=== PATIENT | female | born 1940 | race Caucasian/White ===

== ENCOUNTER → 2016-07-04 | Outpatient (CLI) | payer MEDICARE, MEDICAID ==
[~2016-07-04] MED LIST: DENOSUMAB 60 MG/ML 1 ML SYRINGE SQ NR
[2016-07-04 11:17] VITALS: BP 144/75; PULSE 101; RESP 16; TEMP 98
== END ==
LOC: PROCWHC3 10:48
PROVIDERS: ATTEND Family Medicine
DX: M81.0 Age-related osteoporosis without current pathological fracture (principal)
CPT/HCPCS: 96372; J0897

== ENCOUNTER → 2017-07-31 | Outpatient (CLI) | payer MEDICARE, MEDICAID ==
[~2017-07-31] MED LIST changes: -DENOSUMAB 60 MG/ML 1 ML SYRINGE SQ NR; +DENOSUMAB 60 MG/ML 1 ML SYRINGE SQ ONE
[2017-07-31 09:45] VITALS: BP 132/92; PULSE 102; RESP 16; TEMP 97.1
== END ==
LOC: PROCWHC3 09:28
PROVIDERS: ATTEND Family Medicine
DX: M81.0 Age-related osteoporosis without current pathological fracture (principal)
CPT/HCPCS: 96372; J0897

== ENCOUNTER → 2017-08-01 | Outpatient (CLI) | payer MEDICARE, MEDICAID ==
--- NOTE | 2017-08-01 13:11 | CTL ---
EXAMINATION TYPE: CT Low Dose Lung DATE OF EXAM ORDERED: 08/01/2017 COMPARISON: None HISTORY: . Low Dose CT Lung Screening IV CONTRAST USED: None. SCREENING VISIT: First visit COMPARISON: None. TECHNIQUE: Low dose computed tomography scan was performed through the chest at 1 millimeter thick se ctions and reconstructed images in the coronal plane at [address] DIAGNOSTIC QUALITY: Satisfactory FINDINGS: LUNG NODULES: Right lung: Several sub-3 mm nodules are noted right upper lobe image 69, right middle lobe pleural-b ased image 162, lateral segment right middle lobe image 188 right lower lobe image 2:15. Left lung: Left upper lobe image 53.2 mm, groundglass density left upper lobe image 123 measuring 3.5 mm, pleural-based nodule left upper lobe lingula image 208 measuring 3.4 mm. LUNGS: COPD: Severity: Moderate Fibrosis: Severity: Mild scattered subpleural fibrosis noted. Lymph nodes: None Other findings: None RIGHT PLEURAL SPACE: Effusion: None Calcification: None Thickening: None Pneumothorax: None LEFT PLEURAL SPACE: Effusion: None Calcification: None Thickening: None Pneumothorax: None HEART: Heart Size: Mildly enlarged Coronary calcification: Mild Pericardial effusion: None OTHER FINDINGS: Upper abdomen: No significant abnormality Bony thorax: Degenerative changes Supraclavicular region: No significant abnormality Other: No significant abnormalityI IMPRESSION: 1. No multiple nonspecific pulmonary nodules all measuring less than 4 mm. 2. COPD FOLLOW UP CT CHEST RECOMMENDATION: Follow-up screening in one year CT LUNG RAD: Benign LUNG RAD CATEGORY 2
== END | disposition home or self-care (01) ==
LOC: RADCTMAIN 08:30
PROVIDERS: ATTEND Family Medicine
DX: J44.9 Chronic obstructive pulmonary disease, unspecified (principal); R91.8 Other nonspecific abnormal finding of lung field; F17.200 Nicotine dependence, unspecified, uncomplicated

== ENCOUNTER → 2017-09-20 | Outpatient (CLI) | payer MEDICARE, MEDICAID ==
--- NOTE | 2017-09-20 12:42 | ECHOS ---
STRESS ECHOCARDIOGRAM DATE OF SERVICE: 09/20/2017 INDICATIONS: Abnormal EKG. MEDICATIONS: Atorvastatin, lisinopril, Advair, aspirin, vitamin D, calcium. BASELINE HEART RATE: 80 BASELINE BLOOD PRESSURE: 135/50 MAXIMUM HEART RATE: 137 MAXIMUM BLOOD PRESSURE: 204/91 85% MPHR: 122 100% MPHR: 144 METS: 5.6 MAXIMUM STAGE REACHED: I TOTAL EXERCISE TIME: 4:19 INDICATION: Abnormal EKG, chest discomfort. CLINICAL INFORMATION: STRESS DATA: Pretesting physical examination showed a heart rate of 80, pressure is 135/50 mmHg. Baseline EKG showed sinus mechanism. The patient exercised on the treadmill according to Nolberto protocol for a total of 4 minutes and achieved 5.6 METS. Max heart rate was 137, which is about 95% of maximum predicted heart rate. Maximum blood pressure is 204/91 mmHg. Clinically, the patient did not have any symptoms of chest pain or discomfort. ECHOCARDIOGRAM IMAGES: On echocardiogram images from parasternal long axis view, parasternal short axis view, apical 4 chamber and apical 2 chamber view were obtained as a baseline images, at the peak of the heart rate as well as on recovery. The echocardiogram images showed good augmentation in the left ventricular systolic function without any evidence of wall motion abnormalities concerning for ischemia. CONCLUSION: 1. Average exercise tolerance. 2. Normal EKG in response to exercise. 3. Normal echocardiogram in response to exercise. 4. Essentially normal stress echocardiogram for the patient. MMODL / IJN: [id number] /
== END | disposition home or self-care (01) ==
LOC: RADNMMAIN 09:44
PROVIDERS: ATTEND Family Medicine
DX: R94.31 Abnormal electrocardiogram [ECG] [EKG] (principal)
CPT/HCPCS: 93351

== ENCOUNTER → 2018-02-14 | Outpatient (CLI) | payer MEDICARE ==
[2018-02-14 15:11] VITALS: BP 159/67; PULSE 88; RESP 16; TEMP 98.2
== END ==
LOC: PROCWHC3 14:24
PROVIDERS: ATTEND Family Medicine
DX: M81.0 Age-related osteoporosis without current pathological fracture (principal)
CPT/HCPCS: 96372; J0897

== ENCOUNTER → 2018-08-09 | Outpatient (CLI) | payer MEDICARE, MEDICAID ==
[2018-08-09 09:58] VITALS: BP 166/70; PULSE 109; RESP 16; TEMP 98.3
== END | disposition home or self-care (01) ==
LOC: PROCWHC3 09:40
PROVIDERS: ATTEND Family Medicine
DX: M81.0 Age-related osteoporosis without current pathological fracture (principal)
CPT/HCPCS: 96372; J0897

== ENCOUNTER 2019-01-02 09:54 | Observation (INO) | payer MEDICARE, MEDICAID ==
[2019-01-02] MEDS ORDERED: ONDANSETRON 4 MG/2 ML VIAL IVP STA (10:21)
[2019-01-02] MEDS ORDERED: SODIUM CHLORIDE 0.9% 500 ML 500 ML IV STA (10:21)
--- NOTE | 2019-01-02 10:31 | ED ---
General Adult HPI - General Chief complaint: Abdominal Pain Stated complaint: ABDOMINAL PAIN Time Seen by Provider: 01/02/19 10:11 Source: patient, RN notes reviewed, old records reviewed Mode of arrival: ambulatory Limitations: no limitations - History of Present Illness Initial comments: 78-year-old female patient past medical history significant for hypertension hyperlipidemia presents ED chief complaint of abdominal pain. Patient works that last week she had some lower quadrant abdominal pain that she believes is possibly secondary to constipation. Patient took some stool softeners and had regular bowel movements and that resolved. Patient reports that today she is presenting to the emergency department with epigastric abdominal pain. Reports this has been ongoing for 2 days. Reports nausea without emesis. Denies any chest pain or shortness of breath. Denies any other complaints. Denies any use of blood thinners. Systemic: Pt denies fatigue, fever/chills, rash. Pt denies weakness, night sweats, weight loss. Neuro: Pt denies headache, visual disturbances, syncope or pre-syncope. HEENT: Pt denies ocular discharge or irritation, otalgia, rhinorrhea, pharyngitis or notable lymphadenopathy. Cardiopulmonary: Pt denies chest pain, SOB, heart palpitations, dyspnea on exertion. Abdominal/GI: Pt denies v/d. : Pt denies dysuria, burning w/ urination, frequency/urgency. Denies new onset urinary or bowel incontinence. MSK: Pt denies myalgia, loss of strength or function in extremities. Neuro: Pt denies new onset weakness, paresthesias. - Related Data Home Medications Medication Instructions Recorded Confirmed Aspirin 81 mg PO DAILY 07/04/16 01/02/19 Atorvastatin [Lipitor] 10 mg PO HS 07/04/16 01/02/19 Lisinopril-Hctz 10-12.5 mg 1 tab PO BID 07/04/16 01/02/19 [Zestoretic 10-12.5] Cholecalciferol (Vitamin D3) 2,000 unit PO DAILY 07/31/17 01/02/19 [Vitamin D3] Fluticasone/Salmeterol [Advair 1 puff INHALATION HS 07/31/17 01/02/19 250-50 Diskus] Allergies Allergy/AdvReac Type Severity Reaction Status Date / Time No Known Allergies Allergy Verified 01/02/19 13:45 Review of Systems ROS Statement: Those systems with pertinent positive or pertinent negative responses have been documented in the HPI. ROS Other: All systems not noted in ROS Statement are negative. Past Medical History Past Medical History: Hyperlipidemia, Hypertension, Osteoarthritis (OA) Additional Past Medical History / Comment(s): OSTEOPOROSIS. History of Any Multi-Drug Resistant Organisms: None Reported Past Surgical History: Orthopedic Surgery Additional Past Surgical History / Comment(s): D&C. LEFT WRIST FRACTURE. Past Anesthesia/Blood Transfusion Reactions: No Reported Reaction Past Psychological History: No Psychological Hx Reported, Depression Smoking Status: Current every day smoker Past Alcohol Use History: None Reported Past Drug Use History: None Reported General Exam - General Exam Comments Initial Comments: Constitutional: NAD, AOX3, Pt has pleasant affect. HEENT: NC/AT, trachea midline, neck supple, no lymphadenopathy. Posterior pharynx non erythematous, without exudates. External ears appear normal, without discharge. Mucous membranes moist. Eyes PERRLA, EOM intact. There is no scleral icterus. No pallor noted. Cardiopulmonary: RRR, no murmurs, rubs or gallops, no JVD noted. Lungs CTAB in anterior and posterior kiran. No peripheral edema. Abdominal exam: Abdomen soft and non-distended. Abdomen mildly tender to palpation in epigastric region, no other areas of abdominal tenderness. No skin changes, no guarding or rigidity.. Bowel sounds active in LLQ. No hepatosplenomegaly. No ecchymosis Neuro: CN II-XII grossly intact. No nuchal rigidity. No raccon eyes, no martinez sign, no hemotympanum. No cervical spinal tenderness. MSK: No posterior calf tenderness bilaterally, homans sign negative bilaterally. Posterior tibialis and radial pulse +1 bilaterally. Capillary refill less than 2 seconds. Foot is warm. Sensation intact in upper and lower extremities. Full active ROM in upper and lower extremities, 5/5 stregnth. Limitations: no limitations Course Vital Signs 01/02/19 10:01 Temperature 97.7 F Pulse Rate 83 Respiratory 18 Rate Blood Pressure 132/88 O2 Sat by Pulse 97 Oximetry Medical Decision Making - Medical Decision Making 78-year-old female patient past medical history significant for hypertension hyperlipidemia presents ED chief complaint of abdominal pain. Patient works that last week she had some lower quadrant abdominal pain that she believes is possibly secondary to constipation. Patient took some stool softeners and had regular bowel movements and that resolved. Patient reports that today she is pr esenting to the emergency department with epigastric abdominal pain. Reports this has been ongoing for 2 days. Reports nausea without emesis. Denies any chest pain or shortness of breath. Denies any other complaints. Denies any use of blood thinners. Patient vital signs stable, afebrile. His exam displayed abdomen mild tenderness to palpation epigastric region. Laboratory investigations revealed a leukocytosis of 18.1. Fundi negative. Coagulation studies within normal limits. UA displayed +[address] abdomen and pelvis displayed fairly severe atherosclerotic changes of the aorta extending into the peripheral branch vessels. Significant stenosis suspected complete occlusion of the left leg arterial system with reconstitution of the groin level. Currently correlated with left lower peripheral arterial disease symptoms. No findings to suggest bowel ischemia, possible mid proximal colitis. Abnormal 4.2 cm left pelvic or ovarian lesion. An emergent pelvic ultrasound recommended. His case was discussed with attending physician Dr. Ng who formed a physical exam and discuss case with general surgeon Dr. Borges. He recommended high-density heparinization, admission to him with vascular surgical consultation. - Lab Data Result diagrams: 01/02/19 11:05 01/02/19 11:05 Lab Results 01/02/19 01/02/19 01/02/19 Range/Units 11:00 11:05 11:05 WBC 18.1 H (3.8-10.6) k/uL RBC 4.20 (3.80-5.40) m/uL Hgb 12.8 (11.4-16.0) gm/dL Hct 39.1 (34.0-46.0) % MCV 93.1 (80.0-100.0) fL MCH 30.5 (25.0-35.0) pg MCHC 32.7 (31.0-37.0) g/dL RDW 12.7 (11.5-15.5) % Plt Count 264 (150-450) k/uL Neutrophils % 87 % Lymphocytes % 7 % Monocytes % 4 % Eosinophils % 1 % Basophils % 0 % Neutrophils # 15.8 H (1.3-7.7) k/uL Lymphocytes # 1.3 (1.0-4.8) k/uL Monocytes # 0.7 (0-1.0) k/uL Eosinophils # 0.2 (0-0.7) k/uL Basophils # 0.0 (0-0.2) k/uL PT 10.0 (9.0-12.0) sec INR 0.9 (<1.2) APTT 22.7 (22.0-30.0) sec Sodium 138 (137-145) mmol/L Potassium 3.7 (3.5-5.1) mmol/L Chloride 104 (98-107) mmol/L Carbon Dioxide 25 (22-30) mmol/L Anion Gap 9 mmol/L BUN 25 H (7-17) mg/dL Creatinine 0.53 (0.52-1.04) mg/dL Est GFR (CKD-EPI)AfAm >90 (>60 ml/min/1.73 sqM) Est GFR (CKD-EPI)NonAf >90 (>60 ml/min/1.73 sqM) Glucose 117 H (74-99) mg/dL Plasma Lactic Acid Alexei (0.7-2.0) mmol/L Calcium 10.0 (8.4-10.2) mg/dL Total Bilirubin 0.6 (0.2-1.3) mg/dL AST 27 (14-36) U/L ALT 30 (9-52) U/L Alkaline Phosphatase 47 (38-126) U/L Troponin I (0.000-0.034) ng/mL Total Protein 6.5 (6.3-8.2) g/dL Albumin 4.0 (3.5-5.0) g/dL Lipase 85 (23-300) U/L Urine Color Urine Appearance (Clear) Urine pH (5.0-8.0) Ur Specific [place] (1.001-1.035) Urine Protein (Negative) Urine Glucose (UA) (Negative) Urine Ketones (Negative) Urine Blood (Negative) Urine Nitrite (Negative) Urine Bilirubin (Negative) Urine Urobilinogen (<2.0) mg/dL Ur Leukocyte Esterase (Negative) Urine RBC (0-5) /hpf Urine WBC (0-5) /hpf Ur Squamous Epith Cells (0-4) /hpf Hyaline Casts (0-2) /lpf Urine Mucus (None) /hpf 01/02/19 01/02/19 01/02/19 Range/Units 11:05 11:05 11:35 WBC (3.8-10.6) k/uL RBC (3.80-5.40) m/uL Hgb (11.4-16.0) gm/dL Hct (34.0-46.0) % MCV (80.0-100.0) fL MCH (25.0-35.0) pg MCHC (31.0-37.0) g/dL RDW (11.5-15.5) % Plt Count (150-450) k/uL Neutrophils % % Lymphocytes % % Monocytes % % Eosinophils % % Basophils % % Neutrophils # (1.3-7.7) k/uL Lymphocytes # (1.0-4.8) k/uL Monocytes # (0-1.0) k/uL Eosinophils # (0-0.7) k/uL Basophils # (0-0.2) k/uL PT (9.0-12.0) sec INR (<1.2) APTT (22.0-30.0) sec Sodium (137-145) mmol/L Potassium (3.5-5.1) mmol/L Chloride (98-107) mmol/L Carbon Dioxide (22-30) mmol/L Anion Gap mmol/L BUN (7-17) mg/dL Creatinine (0.52-1.04) mg/dL Est GFR (CKD-EPI)AfAm (>60 ml/min/1.73 sqM) Est GFR (CKD-EPI)NonAf (>60 ml/min/1.73 sqM) Glucose (74-99) mg/dL Plasma Lactic Acid Alexei 1.1 (0.7-2.0) mmol/L Calcium (8.4-10.2) mg/dL Total Bilirubin (0.2-1.3) mg/dL AST (14-36) U/L ALT (9-52) U/L Alkaline Phosphatase (38-126) U/L Troponin I <0.012 (0.000-0.034) ng/mL Total Protein (6.3-8.2) g/dL Albumin (3.5-5.0) g/dL Lipase (23-300) U/L Urine Color Yellow Urine Appearance Cloudy H (Clear) Urine pH 6.5 (5.0-8.0) Ur Specific [place] 1.019 (1.001-1.035) Urine Protein Negative (Negative) Urine Glucose (UA) Negative (Negative) Urine Ketones 1+ H (Negative) Urine Blood Negative (Negative) Urine Nitrite Negative (Negative) Urine Bilirubin Negative (Negative) Urine Urobilinogen <2.0 (<2.0) mg/dL Ur Leukocyte Esterase Negative (Negative) Urine RBC 1 (0-5) /hpf Urine WBC 2 (0-5) /hpf Ur Squamous Epith Cells <1 (0-4) /hpf Hyaline Casts 4 H (0-2) /lpf Urine Mucus Rare H (None) /hpf - EKG Data -: EKG Interpreted by Me (and Dr. Ng) EKG Comments: Ventricular rate 76, SC interval 172, QRS 104, QT/QTc 14/470. Normal sensation, possible left atrial enlargement, low voltage QRS, but on EKG. No concern for acute ischemia. Disposition Clinical Impression: Abdominal pain Disposition: ADMITTED IP TO THIS HOSP Condition: Serious Is patient prescribed a controlled substance at d/c from ED?: No Referrals: Marlon Ellis MD [Primary Care Provider] - 1-2 days
[2019-01-02 11:24] LABS: Basophils % (A) 0 %; Eosinophils # (A) 0.2 k/uL (0-0.7); Eosinophils % (A) 1 %; HCT 39.1 % (34.0-46.0); HGB 12.8 gm/dL (11.4-16.0); Lymphocytes # (A) 1.3 k/uL (1.0-4.8); Lymphocytes % (A) 7 %; MCH 30.5 pg (25.0-35.0); MCHC 32.7 g/dL (31.0-37.0); MCV 93.1 fL (80.0-100.0); Monocytes # (A) 0.7 k/uL (0-1.0); Monocytes % (A) 4 %; Neutrophils # (A) 15.8 k/uL (1.3-7.7); Neutrophils % (A) 87 %; Platelet Count 264 k/uL (150-450); RDW 12.7 % (11.5-15.5); WBC 18.1 k/uL (3.8-10.6)
[2019-01-02 11:42] LABS: ALT 30 U/L (9-52); AST 27 U/L (14-36); African American GFR (CKD) >90 (>60 ml/min/1.73 sqM); Alkaline Phosphatase 47 U/L (38-126); Anion Gap 9 mmol/L; Blood Urea Nitrogen 25 mg/dL (7-17); Carbon Dioxide 25 mmol/L (22-30); Chloride 104 mmol/L (98-107); Glucose 117 mg/dL (74-99); Non-African American GFR(CKD) >90 (>60 ml/min/1.73 sqM); Potassium 3.7 mmol/L (3.5-5.1); Sodium 138 mmol/L (137-145); Total Bilirubin 0.6 mg/dL (0.2-1.3); Total Protein 6.5 g/dL (6.3-8.2)
[2019-01-02 11:57] LABS: Appearance,Urine Cloudy (Clear); Bilirubin,Urine Negative (Negative); Blood,Urine Negative (Negative); Color,Urine Yellow; Glucose,Urine (UA) Negative (Negative); Hyaline Casts,Urine 4 /lpf (0-2); Ketones,Urine 1+ (Negative); Leukocyte Esterase,Urine Negative (Negative); Mucus,Urine Rare /hpf; Nitrite,Urine Negative (Negative); PH, Urine 6.5 (5.0-8.0); Protein,Urine Negative (Negative); RBC,Urine 1 /hpf (0-5); Specific Gravity,Urine 1.019 (1.001-1.035); Squamous Epithelial Cell,Urine <1 /hpf (0-4); Urobilinogen,Urine <2.0 mg/dL (<2.0); WBC,Urine 2 /hpf (0-5)
--- NOTE | 2019-01-02 13:02 | CT ---
EXAMINATION TYPE: CT abdomen pelvis w con DATE OF EXAM: 01/02/2019 HISTORY: upper abd pain CT DLP: 343mGycm Automated Exposure Control for Dose Reduction was Utilized. CONTRAST: CT scan of the abdomen and pelvis is performed without oral but with IV Contrast, patient injected wi th 75 mL of Isovue 300. COMPARISON: None. FINDINGS: LUNG BASES: No significant abnormality is appreciated. LIVER/GB: No significant abnormality is appreciated. PANCREAS: No significant abnormality is seen. SPLEEN: No significant abnormality is seen. ADRENALS: No significant abnormality is seen. KIDNEYS: No significant abnormality is seen. BOWEL: Evaluation bowel suboptimal due to lack of enteric contrast and patient having little intra-ab dominal fat. Stomach is poorly distended and thus suboptimally evaluated. No suspicious small or larg e bowel dilatation. Low-lying cecum in the right pelvis coronal image 37 anteriorly. Mild wall thicke yesi right colon through the proximal transverse colon including hepatic flexure. UTERUS/ADNEXA: Retroverted uterus with suspected small calcified fibroid sagittal image 54. Abnormal left pelvic presumed ovarian 4.2 x 2.5 cm oval low dense lesion. LYMPH NODES: No greater than 1cm abdominal or pelvic lymph nodes are appreciated. OSSEOUS STRUCTURES: Osseous structures are demineralized. Slight underlying scoliotic curvature. Fair ly advanced disc space narrowing with endplate sclerosis L2-L3 level. Grade 1 anterolisthesis L4 on L 5.. OTHER: Moderate to severe calcified plaque of the aorta extends into branch vessels. Significant sten osis probable areas of occlusion in the left iliac arterial system. Significant stenosis at celiac ar jesu origin sagittal image 64 and coronal image 43. IMPRESSION: 1. Fairly severe atherosclerotic change of aorta extending into peripheral branch vessels. There is s ignificant stenosis suspected complete occlusion of the left iliac arterial system with reconstitutio n at the groin level. Correlate clinically for left lower extremity peripheral arterial disease sympt oms. 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 No obvious pneumatosis or portal v enous air noted to suggest bowel ischemia. Possible mild proximal colitis. Correlate clinically. 2. Abnormal 4.2 cm left pelvic or ovarian lesion, nonemergent pelvic ultrasound advised to further ev aluate and characterize. Background calcified fibroid uterus.
[2019-01-02] MEDS ORDERED: HEPARIN SODIUM,PORCINE 10,000 UNIT/ML 1 ML VIAL IV ONE (14:49)
[2019-01-02] MEDS ORDERED: HEPARIN SODIUM,PORCINE 5,000 UNIT/ML 1 ML VIAL IV PRN (14:49)
[2019-01-02 15:06] LABS: INR 0.9 (<1.2); Partial Thromboplastin Time 22.7 sec (22.0-30.0)
[2019-01-02] MEDS ORDERED: MORPHINE SULFATE 4 MG/ML SYRINGE IV PRN (15:18)
[2019-01-02] MEDS ORDERED: NALOXONE 0.4 MG/ML 1 ML VIAL IV PRN (15:18)
[2019-01-02] MEDS: HEPARIN SOD,PORK IN 0.45% NACL 25,000 UNIT in 0.45% NACL 1 250ML.BAG IV SCH (15:47)
[2019-01-02] MEDS: SODIUM CHLORIDE 0.9% 1,000 ML IV SCH (15:52)
[2019-01-02 19:10] LABS: Basophils % (A) 0 %; Eosinophils # (A) 0.1 k/uL (0-0.7); Eosinophils % (A) 1 %; HGB 12.3 gm/dL (11.4-16.0); Lymphocytes # (A) 2.2 k/uL (1.0-4.8); Lymphocytes % (A) 12 %; MCH 31.5 pg (25.0-35.0); MCHC 34.1 g/dL (31.0-37.0); MCV 92.5 fL (80.0-100.0); Mean Platelet Volume 6.2; Monocytes # (A) 0.9 k/uL (0-1.0); Monocytes % (A) 5 %; Neutrophils % (A) 81 %; Platelet Count 261 k/uL (150-450); RDW 12.9 % (11.5-15.5); WBC 18.5 k/uL (3.8-10.6)
[2019-01-02] MEDS: PIPERACILLIN-TAZOBACTAM 3.375 GM in SODIUM CHLORIDE 0.9% 100 ML IVPB SCH (19:10)
[2019-01-03] MEDS: PIPERACILLIN-TAZOBACTAM 3.375 GM in SODIUM CHLORIDE 0.9% 100 ML IVPB SCH ×4 (01:01→23:08)
[2019-01-03] MEDS: SODIUM CHLORIDE 0.9% 1,000 ML IV SCH ×3 (05:13→20:16)
[2019-01-03 06:21] LABS: Basophils % (A) 0 %; Eosinophils # (A) 0.3 k/uL (0-0.7); Eosinophils % (A) 3 %; HCT 34.4 % (34.0-46.0); HGB 11.4 gm/dL (11.4-16.0); Lymphocytes # (A) 2.3 k/uL (1.0-4.8); Lymphocytes % (A) 19 %; MCH 31.1 pg (25.0-35.0); MCHC 33.1 g/dL (31.0-37.0); MCV 93.8 fL (80.0-100.0); Mean Platelet Volume 7.2; Monocytes # (A) 0.6 k/uL (0-1.0); Monocytes % (A) 5 %; Neutrophils # (A) 8.6 k/uL (1.3-7.7); Neutrophils % (A) 71 %; Platelet Count 236 k/uL (150-450); RBC 3.67 m/uL (3.80-5.40)
--- NOTE | 2019-01-03 09:56 | P.GSCN ---
History of Present Illness Consult date: 01/03/19 History of present illness: The patient is a 78 year old female with a past medical history of hypertension, hyperlipidemia and tobacco abuse who presents to the hospital with abdominal pain. She states that this pain is more in her upper stomach area and has been happening for the past day. It began in the mid afternoon, there was no change in diet or anything that provoked the pain or onset. She denies any nausea, vomiting, fevers, or chills. A few days prior she did also have lower abdominal pain which was thought to be due to constipation. She took stool softeners and was able to relieve this pain. This current pain does not feel anything like the pain a few days previous. Prior to all this she denies any issues with eating although she does note in the past few years she has had early satiety, she denies any pain with eating. She has been working on eating smaller meals and this seems to help. She has never had a colonoscopy. We are asked to see the patient for evaluation of her computed tomography scan and notable atherosclerotic disease of her aorta and iliac branches. The computed tomography scan was reviewed, she does have significant calcification at the origin of the celiac artery, the SMA appears widely patent, there is significant distal disease and possible occlusion of the iliac on the left. The patient states that as far as her legs are concerned she does have issues with ambulation. She is able to walk about 2 blocks prior to having significant cramping and pain in her upper thighs and down into her calves. She states this is fairly new, initially was thought to be arthritis but now she thinks something else may be the issue. She denies any wounds Review of Systems 14 point review of systems performed, pertinent positives and negatives per the HPI. Past Medical History Past Medical History: Hyperlipidemia, Hypertension, Osteoarthritis (OA) Additional Past Medical History / Comment(s): OSTEOPOROSIS. History of Any Multi-Drug Resistant Organisms: None Reported Past Surgical History: Orthopedic Surgery Additional Past Surgical History / Comment(s): D&C. LEFT WRIST FRACTURE. Past Anesthesia/Blood Transfusion Reactions: No Reported Reaction Past Psychological History: No Psychological Hx Reported, Depression Smoking Status: Current every day smoker Past Alcohol Use History: None Reported Past Drug Use History: None Reported - Past Family History Daughter(s) Family Medical History: Hyperlipidemia, Hypertension Medications and Allergies Home Medications Medication Instructions Recorded Confirmed Type Aspirin 81 mg PO DAILY 07/04/16 01/02/19 History Atorvastatin [Lipitor] 10 mg PO HS 07/04/16 01/02/19 History Lisinopril-Hctz 10-12.5 mg 1 tab PO BID 07/04/16 01/02/19 History [Zestoretic 10-12.5] Cholecalciferol (Vitamin D3) 2,000 unit PO DAILY 07/31/17 01/02/19 History [Vitamin D3] Fluticasone/Salmeterol [Advair 1 puff INHALATION HS 07/31/17 01/02/19 History 250-50 Diskus] Allergies Allergy/AdvReac Type Severity Reaction Status Date / Time No Known Allergies Allergy Verified 01/02/19 13:45 Surgical - Exam Vital Signs Temp Pulse Resp BP Pulse Ox 97.7 F 83 18 132/88 97 01/02/19 10:01 01/02/19 10:01 01/02/19 10:01 01/02/19 10:01 01/02/19 10:01 Gen. is a pleasant cooperative female in no acute distress. She is sitting comfortably at the bedside. She is thin. She has temporal wasting. HEENT is normocephalic otherwise. Extraocular motion is intact. Heart is regular at this time. Lungs with coarse breath sounds and expiratory wheezes. Abdomen is flat, soft, nontender. Extremity show no clubbing or cyanosis. Extremities are warm and dry. Nonpalpable pedal pulses. Faintly palpable femoral pulses. Normal mood and affect. Cranial nerves II through XII grossly intact. Results Computed tomography scan with IV contrast is reviewed. Significant atherosclerotic disease of the aorta and its branches. There is some evidence of mild colitis of the transverse colon in the area of the hepatic flexure - Labs 01/03/19 05:49 01/02/19 11:05 Abnormal Lab Results - Last 24 Hours (Table) 01/02/19 01/02/19 01/02/19 Range/Units 11:05 11:05 11:35 WBC 18.1 H (3.8-10.6) k/uL RBC (3.80-5.40) m/uL Neutrophils # 15.8 H (1.3-7.7) k/uL APTT (22.0-30.0) sec BUN 25 H (7-17) mg/dL Glucose 117 H (74-99) mg/dL Urine Appearance Cloudy H (Clear) Urine Ketones 1+ H (Negative) Hyaline Casts 4 H (0-2) /lpf Urine Mucus Rare H (None) /hpf 01/02/19 01/02/19 01/03/19 Range/Units 18:43 23:30 05:49 WBC 18.5 H 12.0 H (3.8-10.6) k/uL RBC 3.67 L (3.80-5.40) m/uL Neutrophils # 15.0 H 8.6 H (1.3-7.7) k/uL APTT 90.9 H (22.0-30.0) sec BUN (7-17) mg/dL Glucose (74-99) mg/dL Urine Appearance (Clear) Urine Ketones (Negative) Hyaline Casts (0-2) /lpf Urine Mucus (None) /hpf 01/03/19 Range/Units 05:49 WBC (3.8-10.6) k/uL RBC (3.80-5.40) m/uL Neutrophils # (1.3-7.7) k/uL APTT 71.9 H (22.0-30.0) sec BUN (7-17) mg/dL Glucose (74-99) mg/dL Urine Appearance (Clear) Urine Ketones (Negative) Hyaline Casts (0-2) /lpf Urine Mucus (None) /hpf Diabetes panel 01/02/19 Range/Units 11:05 Sodium 138 (137-145) mmol/L Potassium 3.7 (3.5-5.1) mmol/L Chloride 104 (98-107) mmol/L Carbon Dioxide 25 (22-30) mmol/L BUN 25 H (7-17) mg/dL Creatinine 0.53 (0.52-1.04) mg/dL Glucose 117 H (74-99) mg/dL Calcium 10.0 (8.4-10.2) mg/dL AST 27 (14-36) U/L ALT 30 (9-52) U/L Alkaline Phosphatase 47 (38-126) U/L Total Protein 6.5 (6.3-8.2) g/dL Albumin 4.0 (3.5-5.0) g/dL Calcium panel 01/02/19 Range/Units 11:05 Calcium 10.0 (8.4-10.2) mg/dL Albumin 4.0 (3.5-5.0) g/dL Pituitary panel 01/02/19 Range/Units 11:05 Sodium 138 (137-145) mmol/L Potassium 3.7 (3.5-5.1) mmol/L Chloride 104 (98-107) mmol/L Carbon Dioxide 25 (22-30) mmol/L BUN 25 H (7-17) mg/dL Creatinine 0.53 (0.52-1.04) mg/dL Glucose 117 H (74-99) mg/dL Calcium 10.0 (8.4-10.2) mg/dL Adrenal panel 01/02/19 Range/Units 11:05 Sodium 138 (137-145) mmol/L Potassium 3.7 (3.5-5.1) mmol/L Chloride 104 (98-107) mmol/L Carbon Dioxide 25 (22-30) mmol/L BUN 25 H (7-17) mg/dL Creatinine 0.53 (0.52-1.04) mg/dL Glucose 117 H (74-99) mg/dL Calcium 10.0 (8.4-10.2) mg/dL Total Bilirubin 0.6 (0.2-1.3) mg/dL AST 27 (14-36) U/L ALT 30 (9-52) U/L Alkaline Phosphatase 47 (38-126) U/L Total Protein 6.5 (6.3-8.2) g/dL Albumin 4.0 (3.5-5.0) g/dL Assessment and Plan Assessment: #1 abdominal painresolved #2 would favor more of a ischemic colitis type picture versus overt mesenteric ischemia #3 atherosclerotic disease of the [place] aorta with 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 #4 iliac occlusive disease bilaterally #5 [place] 3 peripheral arterial disease with severe claudication less than 2 blocks #6 hypertension #7 tobacco abuse #8 hyperlipidemia Plan: At this time we'll order a CT angiogram of the aorta as well as runoffs to the bilateral lower extremities. I do not believe that her abdominal pain is due to acute mesenteric ischemia, she may have some degree of ischemic colitis from her atherosclerotic disease but she currently feels much better and does not have the typical abdominal pains after eating. She has had weight loss recently she has never had a colonoscopy otherwise. As far as her lower extremities are concerned we will obtain a runoff picture with the abdominal aorta. These issues can be addressed as an outpatient as far as her peripheral vasculature. Regardless, she needs to be on aspirin. I do not believe she needs to be on a heparin drip at this time. We will initiate Xarelto 2.5 twice a day at the peripheral atherosclerotic disease dosing. This should also aid in her flow to her mesenteric vessels
--- NOTE | 2019-01-03 10:32 | P.GSHP ---
<Poly Barker - Last Filed: 01/03/19 10:29> History of Present Illness H&P Date: 01/03/19 Chief Complaint: abdominal pain CHIEF COMPLAINT: Abdominal pain HISTORY OF PRESENT ILLNESS: 78-year-old female who presented to the emergency room with a chief complaint of abdominal pain. Patient reports yesterday she began having abdominal discomfort. She reports the pain was in her upper abdomen, bilaterally. About a week ago, she had an episodes of bilateral lower abdominal pain which she relates to constipation. She took some [id number] stool softeners and her pain resolved after she had a bowel movement. She denies nausea or vomiting. Last BM was Sunday morning. She denies previous EGD or colonoscopy. She states her abdominal pain has completely resolved. PAST MEDICAL HISTORY: See list. PAST SURGICAL HISTORY: See list. SOCIAL HISTORY: No illicit drug use. She reports 1/2 pack to 3/4 pack of cigarettes per day. REVIEW OF SYSTEMS: CONSTITUTIONAL: Denies fever or chills. HEENT: Denies blurred vision, vision changes, or eye pain. Denies hemoptysis CARDIOVASCULAR: Denies chest pain or pressure. RESPIRATORY: No shortness of breath. GASTROINTESTINAL: Refer to HPI for pertinent findings HEMATOLOGIC: Denies bleeding disorders. GENITOURINARY: Denies any blood in urine. SKIN: Denies pruitis. Denies rash. PHYSICAL EXAM: VITAL SIGNS: Reviewed. GENERAL: Well-developed in no acute distress. HEENT: No sclera icterus. Extraocular movements grossly intact. Moist buccal mucosa. Head is atraumatic, normocephalic. ABDOMEN: Soft. Nondistended. Nontender. NEUROLOGIC: Alert and oriented. Cranial nerves II through XII grossly intact. LABORATORY DATA: WBC on admission 18.1. Repeat this morning 12.0. Hemoglobin 11.4. Platelet count 236. Sodium 138. Potassium 3.7. BUN 25. Creatinine 0.53. Bilirubin 0.6. AST 27. ALT 30. IMAGING: CT abdomen and pelvis: Fairly severe atherosclerotic changes of aorta extending to the peripheral branch vessels. 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 No obvious pneumatosis or portal venous air noted to suggest bowel ischemia. Possible mid proximal colitis. ASSESSMENT: 1. Abdominal pain, resolved 2. Possible colitis per CT scan PLAN: Patients abdominal pain has resolved. No signs of bowel ischemia clinically. Okay to begin clear liquid diet from surgical standpoint. Will continue to monitor. Nurse practitioner note has been reviewed by physician. Signing provider agrees with the documented findings, assessment, and plan of care. Past Medical History Past Medical History: Hyperlipidemia, Hypertension, Osteoarthritis (OA) Additional Past Medical History / Comment(s): OSTEOPOROSIS. History of Any Multi-Drug Resistant Organisms: None Reported Past Surgical History: Orthopedic Surgery Additional Past Surgical History / Comment(s): D&C. LEFT WRIST FRACTURE. Past Anesthesia/Blood Transfusion Reactions: No Reported Reaction Past Psychological History: No Psychological Hx Reported, Depression Smoking Status: Current every day smoker Past Alcohol Use History: None Reported Past Drug Use History: None Reported - Past Family History Daughter(s) Family Medical History: Hyperlipidemia, Hypertension Medications and Allergies Home Medications Medication Instructions Recorded Confirmed Type Aspirin 81 mg PO DAILY 07/04/16 01/02/19 History Atorvastatin [Lipitor] 10 mg PO HS 07/04/16 01/02/19 History Lisinopril-Hctz 10-12.5 mg 1 tab PO BID 07/04/16 01/02/19 History [Zestoretic 10-12.5] Cholecalciferol (Vitamin D3) 2,000 unit PO DAILY 07/31/17 01/02/19 History [Vitamin D3] Fluticasone/Salmeterol [Advair 1 puff INHALATION HS 07/31/17 01/02/19 History 250-50 Diskus] Allergies Allergy/AdvReac Type Severity Reaction Status Date / Time No Known Allergies Allergy Verified 01/02/19 13:45 Surgical - Exam Vital Signs Temp Pulse Resp BP Pulse Ox 97.7 F 83 18 132/88 97 01/02/19 10:01 01/02/19 10:01 01/02/19 10:01 01/02/19 10:01 01/02/19 10:01 Results - Labs 01/03/19 05:49 01/02/19 11:05 Abnormal Lab Results - Last 24 Hours (Table) 01/02/19 01/02/19 01/02/19 Range/Units 11:05 11:05 11:35 WBC 18.1 H (3.8-10.6) k/uL RBC (3.80-5.40) m/uL Neutrophils # 15.8 H (1.3-7.7) k/uL APTT (22.0-30.0) sec BUN 25 H (7-17) mg/dL Glucose 117 H (74-99) mg/dL Urine Appearance Cloudy H (Clear) Urine Ketones 1+ H (Negative) Hyaline Casts 4 H (0-2) /lpf Urine Mucus Rare H (None) /hpf 01/02/19 01/02/19 01/03/19 Range/Units 18:43 23:30 05:49 WBC 18.5 H 12.0 H (3.8-10.6) k/uL RBC 3.67 L (3.80-5.40) m/uL Neutrophils # 15.0 H 8.6 H (1.3-7.7) k/uL APTT 90.9 H (22.0-30.0) sec BUN (7-17) mg/dL Glucose (74-99) mg/dL Urine Appearance (Clear) Urine Ketones (Negative) Hyaline Casts (0-2) /lpf Urine Mucus (None) /hpf 01/03/19 Range/Units 05:49 WBC (3.8-10.6) k/uL RBC (3.80-5.40) m/uL Neutrophils # (1.3-7.7) k/uL APTT 71.9 H (22.0-30.0) sec BUN (7-17) mg/dL Glucose (74-99) mg/dL Urine Appearance (Clear) Urine Ketones (Negative) Hyaline Casts (0-2) /lpf Urine Mucus (None) /hpf Diabetes panel 01/02/19 Range/Units 11:05 Sodium 138 (137-145) mmol/L Potassium 3.7 (3.5-5.1) mmol/L Chloride 104 (98-107) mmol/L Carbon Dioxide 25 (22-30) mmol/L BUN 25 H (7-17) mg/dL Creatinine 0.53 (0.52-1.04) mg/dL Glucose 117 H (74-99) mg/dL Calcium 10.0 (8.4-10.2) mg/dL AST 27 (14-36) U/L ALT 30 (9-52) U/L Alkaline Phosphatase 47 (38-126) U/L Total Protein 6.5 (6.3-8.2) g/dL Albumin 4.0 (3.5-5.0) g/dL Calcium panel 01/02/19 Range/Units 11:05 Calcium 10.0 (8.4-10.2) mg/dL Albumin 4.0 (3.5-5.0) g/dL Pituitary panel 01/02/19 Range/Units 11:05 Sodium 138 (137-145) mmol/L Potassium 3.7 (3.5-5.1) mmol/L Chloride 104 (98-107) mmol/L Carbon Dioxide 25 (22-30) mmol/L BUN 25 H (7-17) mg/dL Creatinine 0.53 (0.52-1.04) mg/dL Glucose 117 H (74-99) mg/dL Calcium 10.0 (8.4-10.2) mg/dL Adrenal panel 01/02/19 Range/Units 11:05 Sodium 138 (137-145) mmol/L Potassium 3.7 (3.5-5.1) mmol/L Chloride 104 (98-107) mmol/L Carbon Dioxide 25 (22-30) mmol/L BUN 25 H (7-17) mg/dL Creatinine 0.53 (0.52-1.04) mg/dL Glucose 117 H (74-99) mg/dL Calcium 10.0 (8.4-10.2) mg/dL Total Bilirubin 0.6 (0.2-1.3) mg/dL AST 27 (14-36) U/L ALT 30 (9-52) U/L Alkaline Phosphatase 47 (38-126) U/L Total Protein 6.5 (6.3-8.2) g/dL Albumin 4.0 (3.5-5.0) g/dL <Nicho Villela - Last Filed: 01/03/19 12:54> History of Present Illness As above. Thank for the patient's pain has resolved. Presentation somewhat suspicious for mesenteric ischemia however. Await repeat CAT scan. Continue anticoagulation per vascular surgery. Await hospitalist evaluation. Likely resume diet once workup completed today. Surgical - Exam Vital Signs Temp Pulse Resp BP Pulse Ox 97.7 F 83 18 132/88 97 01/02/19 10:01 01/02/19 10:01 01/02/19 10:01 01/02/19 10:01 01/02/19 10:01 Results - Labs 01/03/19 05:49 01/03/19 05:49 Abnormal Lab Results - Last 24 Hours (Table) 01/02/19 01/02/19 01/03/19 Range/Units 18:43 23:30 05:49 WBC 18.5 H 12.0 H (3.8-10.6) k/uL RBC 3.67 L (3.80-5.40) m/uL Neutrophils # 15.0 H 8.6 H (1.3-7.7) k/uL APTT 90.9 H (22.0-30.0) sec BUN (7-17) mg/dL 01/03/19 01/03/19 Range/Units 05:49 05:49 WBC (3.8-10.6) k/uL RBC (3.80-5.40) m/uL Neutrophils # (1.3-7.7) k/uL APTT 71.9 H (22.0-30.0) sec BUN 22 H (7-17) mg/dL Diabetes panel 01/03/19 Range/Units 05:49 BUN 22 H (7-17) mg/dL Creatinine 0.69 (0.52-1.04) mg/dL Pituitary panel 01/03/19 Range/Units 05:49 BUN 22 H (7-17) mg/dL Creatinine 0.69 (0.52-1.04) mg/dL Adrenal panel 01/03/19 Range/Units 05:49 BUN 22 H (7-17) mg/dL Creatinine 0.69 (0.52-1.04) mg/dL
[2019-01-03 11:22] LABS: African American GFR (CKD) >90 (>60 ml/min/1.73 sqM); Blood Urea Nitrogen 22 mg/dL (7-17); Non-African American GFR(CKD) 84 (>60 ml/min/1.73 sqM)
[2019-01-03 12:19] VITALS: BMI 14.8
[2019-01-03] MEDS: LISINOPRIL-HCTZ 10-12.5 MG 1 EACH TAB PO SCH ×2 (12:47→20:15)
[2019-01-03] MEDS: ASPIRIN 81 MG PO SCH (12:48)
[2019-01-03] MEDS: CHOLECALCIFEROL 1,000 UNIT TAB PO SCH (12:48)
[2019-01-03] MEDS: HEPARIN SOD,PORK IN 0.45% NACL 25,000 UNIT in 0.45% NACL 1 250ML.BAG IV SCH (16:39)
--- NOTE | 2019-01-03 19:59 | P.CONS ---
History of Present Illness - Reason for Consult Consult date: 01/03/19 Medical management Requesting physician: Nicho Villela - Chief Complaint Abdominal pain - History of Present Illness Consultation: This is a very pleasant 78-year-old patient of Dr. ramirez from [place]. Chronic stable medical conditions include hypertension, hyperlipidemia, osteoporosis, depression, COPD. Patient long-standing smoker. 2 nights ago patient presented with severe pain in the epigastric area which remained then did corporate to was the site. No precordial pain. No significant nausea present no fever no chills. Patient was day for close to 24 hours. Then subsided. 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 Mild proximal colitis possible. No diarrhea. Patient denies any prior cardiac history. She does state that when she walks longer distances he gets pain in the calf and the thigh. She also gets really short winded when she does more than usual. Review of systems: GEN.: Tired EYES: None HEENT: None NECK: None RESPIRATORY: Occasional wheezing] CARDIOVASCULAR: None GASTROINTESTINAL: As above GENITOURINARY: None MUSCULOSKELETAL: Joint pains LYMPHATICS: None HEMATOLOGICAL: None PSYCHIATRY: None NEUROLOGICAL: None Past medical history to include: Hypertension, hyperlipidemia, osteoarthritis, depression, COPD Social history: This with daughter. Smoking over a pack a day for more than 50 years. No alcohol. Physical examination: VITAL SIGNS: 97.7, 83, 18, 132/88, 97% room air GENERAL: BMI 40.9, sitting up, but anxious. EYES: Pupils equal. Conjunctiva normal. HEENT: External appearance of nose and ears normal, oral cavity grossly normal. NECK: JVD not raised; masses not palpable. HEART: First and second heart sounds are normal; no edema. LUNGS: Respiratory rate increased, decreased breath sounds prolonged expiration. ABDOMEN: Soft, nontender, liver spleen not palpable, no masses palpable. PSYCH: Alert and oriented x3; mood and affect slightly anxiousl. NEUROLOGICAL: Cranial nerves grossly intact; no facial asymmetry, power and sensation grossly intact. LYMPHATICS: No lymph nodes palpable in the axilla and neck MUSCULOSKELETAL: Evidence of OA in the hands INVESTIGATIONS, reviewed in the clinical context: White count 18.1 hemoglobin 12.82.7 bun 25 creatinine 0.53 Troponin I less than 0.012 UA showing ketones 1+ CT of the abdomen and pelvis contrast-mild wall thickening right: To the proximal transverse colon including the hepatic flexure, severe atherosclerotic change of the aorta extending into the peripheral blood vessels. 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 4.2 cm left pelvic ovary lesion Assessment: -This is a patient who presented with severe epigastric pain more so localized to the upper abdomen positive for close to 24 hours. Associated nausea. There was no fever. No diarrhea. Does and elevated white count. Most likely patient's findings are secondary to intestinal angina. Per patient does not give any other history of such before. Peptic ulcer disease less likely. -Doubt colitis, but possible -Intermittent claudication -COPD in a current smoker -Chronic nicotine dependence patient cigarette smoker -Hyperlipidemia -Essential hypertension -Primary osteoarthritis -Severe protein calorie malnutrition with a BMI of 40.9 Plan: Discussed with Dr. Goodman from vascular surgery. She is planned to put the patient on xarelto. No further intervention for now. Did discuss with the patient at length. If any further intervention and she'll probably need to go to a tertiary center. Patient reported bronchodilators form of DuoNeb. Other inhalers to continue. Patient may require EGD down the road. We'll consult dietitian. Also add Ensure. Smoke cessation counseling: This was done with the patient. Nicotine patch is being given. More than 3 minutes was spent for this Thank you Dr. hassan Past Medical History Past Medical History: Hyperlipidemia, Hypertension, Osteoarthritis (OA) Additional Past Medical History / Comment(s): OSTEOPOROSIS. History of Any Multi-Drug Resistant Organisms: None Reported Past Surgical History: Orthopedic Surgery Additional Past Surgical History / Comment(s): D&C. LEFT WRIST FRACTURE. Past Anesthesia/Blood Transfusion Reactions: No Reported Reaction Past Psychological History: No Psychological Hx Reported, Depression Smoking Status: Current every day smoker Past Alcohol Use History: None Reported Past Drug Use History: None Reported - Past Family History Daughter(s) Family Medical History: Hyperlipidemia, Hypertension Medications and Allergies Home Medications Medication Instructions Recorded Confirmed Type Aspirin 81 mg PO DAILY 07/04/16 01/02/19 History Atorvastatin [Lipitor] 10 mg PO HS 07/04/16 01/02/19 History Lisinopril-Hctz 10-12.5 mg 1 tab PO BID 07/04/16 01/02/19 History [Zestoretic 10-12.5] Cholecalciferol (Vitamin D3) 2,000 unit PO DAILY 07/31/17 01/02/19 History [Vitamin D3] Fluticasone/Salmeterol [Advair 1 puff INHALATION HS 07/31/17 01/02/19 History 250-50 Diskus] Allergies Allergy/AdvReac Type Severity Reaction Status Date / Time No Known Allergies Allergy Verified 01/02/19 13:45 Physical Exam Vitals: Vital Signs Temp Pulse Resp BP Pulse Ox 01/03/19 16:32 97.7 F 84 16 188/74 95 01/03/19 12:50 97.9 F 74 16 143/65 95 01/03/19 08:50 98.2 F 81 16 165/74 96 01/03/19 04:00 97.8 F 65 17 136/62 95 01/02/19 23:59 97.9 F 84 16 118/56 93 L 01/02/19 20:00 98.8 F 83 17 139/62 94 L Intake and Output 01/03/19 01/03/19 01/03/19 06:59 14:59 22:59 Intake Total 742.834 480 892.685 Output Total 150 Balance 742.834 330 892.685 Intake: Intake, IV Titration 742.834 892.685 Amount Heparin Sod,Pork in 0.45% 82.834 52.685 NaCl 25,000 unit In 0.45 % NaCl 1 250ml.bag @ 18 UNITS/KG/HR 5.879 mls/hr IV .Q24H [facility] Rx#: [id number] Piperacillin-Tazobactam 3 100 200 .375 gm In Sodium Chloride 0.9% 100 ml @ 25 mls/hr IVPB Q8HR [facility] Rx# :[id number] Sodium Chloride 0.9% 1, 560 640 000 ml @ 80 mls/hr IV . [id number] [facility] Rx#:[id number] Oral 480 Output: Urine 150 Other: Voiding Method Toilet # Voids 3 Weight 32.3 kg 32.3 kg Results CBC & Chem 7: 01/03/19 05:49 01/03/19 05:49 Labs: Abnormal Lab Results - Last 24 Hours (Table) 01/02/19 01/03/19 01/03/19 Range/Units 23:30 05:49 05:49 WBC 12.0 H (3.8-10.6) k/uL RBC 3.67 L (3.80-5.40) m/uL Neutrophils # 8.6 H (1.3-7.7) k/uL APTT 90.9 H 71.9 H (22.0-30.0) sec BUN (7-17) mg/dL 01/03/19 Range/Units 05:49 WBC (3.8-10.6) k/uL RBC (3.80-5.40) m/uL Neutrophils # (1.3-7.7) k/uL APTT (22.0-30.0) sec BUN 22 H (7-17) mg/dL
[2019-01-03] MEDS: NICOTINE 21MG/24HR PATCH TRANSDERM SCH (20:58)
[2019-01-03] MEDS ORDERED: ATORVASTATIN 10 MG TAB PO SCH (21:00)
[2019-01-03] MEDS: SYMBICORT 80-4.5 MCG INHALER INHALATION SCH (21:05)
[2019-01-03] MEDS: IPRATROPIUM-ALBUTEROL 3 ML NEB INHALATION SCH (21:17)
[2019-01-04 06:45] LABS: Basophils % (A) 0 %; Eosinophils # (A) 0.5 k/uL (0-0.7); Eosinophils % (A) 6 %; HCT 30.2 % (34.0-46.0); HGB 10.2 gm/dL (11.4-16.0); Lymphocytes % (A) 22 %; MCH 31.3 pg (25.0-35.0); MCHC 33.8 g/dL (31.0-37.0); MCV 92.7 fL (80.0-100.0); Mean Platelet Volume 6.6; Monocytes # (A) 0.6 k/uL (0-1.0); Monocytes % (A) 7 %; Neutrophils # (A) 5.6 k/uL (1.3-7.7); Neutrophils % (A) 63 %; Platelet Count 232 k/uL (150-450); RBC 3.26 m/uL (3.80-5.40); RDW 12.8 % (11.5-15.5)
[2019-01-04] MEDS: SYMBICORT 80-4.5 MCG INHALER INHALATION SCH (08:05)
[2019-01-04] MEDS: IPRATROPIUM-ALBUTEROL 3 ML NEB INHALATION SCH ×4 (08:06→15:06)
[2019-01-04] MEDS: PIPERACILLIN-TAZOBACTAM 3.375 GM in SODIUM CHLORIDE 0.9% 100 ML IVPB SCH (09:44)
[2019-01-04] MEDS: ASPIRIN 81 MG PO SCH (09:45)
[2019-01-04] MEDS: LISINOPRIL-HCTZ 10-12.5 MG 1 EACH TAB PO SCH (09:45)
[2019-01-04] MEDS: CHOLECALCIFEROL 1,000 UNIT TAB PO SCH (09:45)
[2019-01-04] MEDS: NICOTINE 21MG/24HR PATCH TRANSDERM SCH (09:45)
[2019-01-04 10:11] VITALS: RESP 18
--- NOTE | 2019-01-04 11:41 | P.DS ---
Providers Date of admission: 01/02/19 14:28 Expected date of discharge: 01/04/19 Attending physician: Nicho Villela Consults: 01/02/19 14:28 Consult Physician Urgent Consulting Provider: Hallie Goodman Consult Reason/Comments: abdominal pain, abnormal CT findings Do you want consulting provider notified?: Already Contacted 01/02/19 15:19 Consult Physician Stat Consulting Provider: Alexys Salmon Consult Reason/Comments: medical management, abdomninal pain vascular consult Do you want consulting provider notified?: Yes Primary care physician: Marlon Ellis [facility] Course: Patient was admitted through the emergency department with suspected mesenteric ischemia. CAT scan shows significant vascular disease of the mesenteric vasculature as well as lower extremity vascular disease. Patient had some mild thickening of the cecum. Patient's pain was transient thankfully. Shortly after admission the patient's pain resolved. She was seen by vascular surgery a nd the hospitalist service. Doing well at this time. Tolerating diet. Would like to go home today. Per vascular patient will be discharged on Xarelto. Outpatient follow-up with vascular surgery planned. Patient Condition at Discharge: Serious Plan - Discharge Summary Discharge Rx Participant: No New Discharge Prescriptions: No Action Lisinopril-Hctz 10-12.5 mg [Zestoretic 10-12.5] 1 tab PO BID Atorvastatin [Lipitor] 10 mg PO HS Aspirin 81 mg PO DAILY Fluticasone/Salmeterol [Advair 250-50 Diskus] 1 puff INHALATION HS Cholecalciferol (Vitamin D3) [Vitamin D3] 2,000 unit PO DAILY Discharge Medication List Aspirin 81 mg PO DAILY 07/04/16 [History] Atorvastatin [Lipitor] 10 mg PO HS 07/04/16 [History] Lisinopril-Hctz 10-12.5 mg [Zestoretic 10-12.5] 1 tab PO BID 07/04/16 [History] Cholecalciferol (Vitamin D3) [Vitamin D3] 2,000 unit PO DAILY 07/31/17 [History] Fluticasone/Salmeterol [Advair 250-50 Diskus] 1 puff INHALATION HS 07/31/17 [History] Follow up Appointment(s)/Referral(s): Marlon Ellis MD [Primary Care Provider] - 1-2 days
[2019-01-04 12:28] VITALS: BP 166/70; PULSE 72; TEMP 98.5
[2019-01-04] MEDS ORDERED: RIVAROXABAN 2.5 MG TABLET PO SCH (12:30)
--- NOTE | 2019-01-04 16:49 | P.PN ---
Subjective Progress Note Date: 01/04/19 Patient seen and examined good overall doing well. Tolerated diet without any nausea or vomiting or abdominal pain. No complaints otherwise. 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 As far as her weight loss and early satiety, would recommend outpatient workup as well as small meals and protein intake throughout the day. We will follow-up with her as an outpatient regarding her peripheral arterial disease and possibilities of revascularization. Questions were answered. Her and her daughter seemingly understand and are willing to proceed as mentioned Objective - Vital Signs Vital signs: Vital Signs Temp 98.5 F 01/04/19 12:00 Pulse 72 01/04/19 12:00 Resp 18 01/04/19 12:00 BP 166/70 01/04/19 12:00 Pulse Ox 96 01/04/19 12:00 Intake & Output 01/03/19 01/04/19 01/04/19 18:59 06:59 18:59 Intake Total 1372.685 664.718 360 Output Total 150 400 Balance 1222.685 664.718 -40 Weight 32.3 kg 34 kg Intake: IV 30 20 Invasive Line 1 30 20 Intake, IV Titration 892.685 634.718 Amount Heparin Sod,Pork in 0.45% 52.685 74.718 NaCl 25,000 unit In 0.45 % NaCl 1 250ml.bag @ 18 UNITS/KG/HR 5.879 mls/hr IV .Q24H [facility] Rx#: [id number] Piperacillin-Tazobactam 3 200 .375 gm In Sodium Chloride 0.9% 100 ml @ 25 mls/hr IVPB Q8HR [facility] Rx# :[id number] Sodium Chloride 0.9% 1, 640 560 000 ml @ 80 mls/hr IV . [id number] [facility] Rx#:[id number] Oral 480 340 Output: Urine 150 400 Other: Voiding Method Toilet Toilet # Voids 3 1 # Bowel Movements 1 - Labs CBC & Chem 7: 01/04/19 06:17 01/03/19 05:49 Labs: Abnormal Lab Results - Last 24 Hours (Table) 01/04/19 01/04/19 Range/Units 06:17 06:17 RBC 3.26 L (3.80-5.40) m/uL Hgb 10.2 L (11.4-16.0) gm/dL Hct 30.2 L (34.0-46.0) % APTT 51.3 H (22.0-30.0) sec
--- NOTE | 2019-01-04 21:49 | P.PN ---
Progress Note - Text Progress Note Date: 01/04/19 - Chief Complaint Abdominal pain - History of Present Illness Consultation: This is a very pleasant 78-year-old patient of Dr. ramirez from [place]. Chronic stable medical conditions include hypertension, hyperlipidemia, osteoporosis, depression, COPD. Patient long-standing smoker. 2 nights ago patient presented with severe pain in the epigastric area which remained then did corporate to was the site. No precordial pain. No significant nausea present no fever no chills. Patient was day for close to 24 hours. Then subsided. 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 Mild proximal colitis possible. No diarrhea. Patient denies any prior cardiac history. She does state that when she walks longer distances he gets pain in the calf and the thigh. She also gets really short winded when she does more than usual. today-. Remains no abdominal pain. Eating better. Tolerated diet. No diarrhea. No fever no chills. Very highly doubt colitis. Review of systems: Was done for constitutional, cardiovascular, GI, pulmonary. relevant finding as above Physical examination: VITAL SIGNS: 97.9, 75, 16, 166-70, 96% room air GENERAL: sitting on the bed, comfortable. EYES: Pupils equal. Conjunctiva normal. HEENT: External appearance of nose and ears normal, oral cavity grossly normal. NECK: JVD not raised; masses not palpable. HEART: First and second heart sounds are normal; no edema. LUNGS: Respiratory rate increased, decreased breath sounds prolonged expiration. ABDOMEN: Soft, nontender, liver spleen not palpable, no masses palpable. PSYCH: Alert and oriented x3; mood and affect slightly anxiousl. MUSCULOSKELETAL: Evidence of OA in the hands INVESTIGATIONS, reviewed in the clinical context: White count 9 hemoglobin 10.2 Previous testing White count 18.1 hemoglobin 12.82.7 bun 25 creatinine 0.53 Troponin I less than 0.012 UA showing ketones 1+ CT of the abdomen and pelvis contrast-mild wall thickening right: To the proximal transverse colon including the hepatic flexure, severe atherosclerotic change of the aorta extending into the peripheral blood vessels. 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 4.2 cm left pelvic ovary lesion Assessment: -possible intestinal angina. -Doubt colitis, -Intermittent claudication -COPD in a current smoker -Chronic nicotine dependence patient cigarette smoker -Hyperlipidemia -Essential hypertension -Primary osteoarthritis -Severe protein calorie malnutrition with a BMI of 40.9 Plan: patient has been on several to 2.5 twice a day. Atrovent inhaler and albuterol for when necessary has been added. In yet again advised against smoking. care was discussed with patient hand discussion from yesterday was reinforced. thank you Dr. Rutledge
== END 2019-01-04 17:28 | disposition home or self-care (01) ==
LOC: EC 09:54 → 3SCARD 14:28
PROVIDERS: ADMIT Surgery; ATTEND Surgery
DX: R10.13 Epigastric pain (principal); R11.0 Nausea; R10.816 Epigastric abdominal tenderness; I70.0 Atherosclerosis of aorta; I74.5 Embolism and thrombosis of iliac artery; I77.4 Celiac artery compression syndrome; R93.3 Abnormal findings on diagnostic imaging of other parts of digestive tract; N83.8 Other noninflammatory disorders of ovary, fallopian tube and broad ligament; D25.9 Leiomyoma of uterus, unspecified; I70.219 Atherosclerosis of native arteries of extremities with intermittent claudication, unspecified extremity; I10 Essential (primary) hypertension; E78.5 Hyperlipidemia, unspecified; M19.90 Unspecified osteoarthritis, unspecified site; F32.9 Major depressive disorder, single episode, unspecified; J44.9 Chronic obstructive pulmonary disease, unspecified; E43 Unspecified severe protein-calorie malnutrition; Z68.1 Body mass index [BMI] 19.9 or less, adult; F17.210 Nicotine dependence, cigarettes, uncomplicated; Z79.82 Long term (current) use of aspirin; Z79.899 Other long term (current) drug therapy; Z79.51 Long term (current) use of inhaled steroids; Z87.39 Personal history of other diseases of the musculoskeletal system and connective tissue; Z98.890 Other specified postprocedural states; Z87.81 Personal history of (healed) traumatic fracture; Z83.438 Family history of other disorder of lipoprotein metabolism and other lipidemia; Z82.49 Family history of ischemic heart disease and other diseases of the circulatory system
CPT/HCPCS: 96366 ×4; 96367; 96376; 96361; 96365; 96375; 99285; 36415; 94640 ×2; 93005; 80053; 82565; 83605; 83690; 84520; 84484; 85025 ×3; 85610; 85730 ×3; 81001; 74177; G0378 ×3; J2543 ×3; J1644 ×3; J2405; Q9967

== ENCOUNTER → 2019-02-13 | Outpatient (CLI) | payer MEDICARE, MEDICAID ==
[~2019-02-13] MED LIST changes: +DENOSUMAB 60 MG/ML 1 ML SYRINGE SQ NR; -DENOSUMAB 60 MG/ML 1 ML SYRINGE SQ ONE
[2019-02-13 10:33] VITALS: BP 149/64; PULSE 87; RESP 18; TEMP 97.6
== END | disposition home or self-care (01) ==
LOC: PROCWHC3 10:18
PROVIDERS: ATTEND Family Medicine
DX: M81.0 Age-related osteoporosis without current pathological fracture (principal)

== ENCOUNTER → 2019-04-16 | Outpatient (CLI) | payer MEDICARE, MEDICAID | END | disposition home or self-care (01) | CPT/HCPCS: 82565; 84520; 75635; 36415; Q9967 ==

== ENCOUNTER → 2019-08-15 | Outpatient (CLI) | payer MEDICARE, MEDICAID ==
[2019-08-15 11:36] VITALS: BP 181/69; PULSE 99; RESP 18; TEMP 98.1
== END | disposition home or self-care (01) ==
LOC: PROCWHC3 11:21
PROVIDERS: ATTEND Family Medicine
DX: M81.0 Age-related osteoporosis without current pathological fracture (principal)
CPT/HCPCS: 96372; J0897

== ENCOUNTER 2019-11-15 19:10 | Observation (INO) | payer MEDICARE, MEDICAID ==
[2019-11-15] MEDS ORDERED: SODIUM CHLORIDE 0.9% 500 ML 500 ML IV STA (19:53)
[2019-11-15] MEDS ORDERED: ONDANSETRON 4 MG/2 ML VIAL IVP STA (19:53)
[2019-11-15] MEDS ORDERED: MORPHINE SULFATE 2 MG/ML SYRINGE IVP STA (19:53)
[2019-11-15 20:43] LABS: Basophils % (A) 0 %; Eosinophils # (A) 0.1 k/uL (0-0.7); Eosinophils % (A) 1 %; HCT 38.2 % (34.0-46.0); HGB 12.6 gm/dL (11.4-16.0); Lymphocytes # (A) 1.1 k/uL (1.0-4.8); Lymphocytes % (A) 8 %; Mean Platelet Volume 7.6; Monocytes # (A) 0.7 k/uL (0-1.0); Monocytes % (A) 5 %; Neutrophils # (A) 12.8 k/uL (1.3-7.7); Neutrophils % (A) 86 %; Platelet Count 250 k/uL (150-450); RBC 4.07 m/uL (3.80-5.40); RDW 12.4 % (11.5-15.5)
[2019-11-15 20:54] LABS: ALT 20 U/L (4-34); AST 25 U/L (14-36); African American GFR (CKD) >90 (>60 ml/min/1.73 sqM); Albumin 4.1 g/dL (3.5-5.0); Alkaline Phosphatase 48 U/L (38-126); Anion Gap 9 mmol/L; Blood Urea Nitrogen 28 mg/dL (7-17); Calcium 9.8 mg/dL (8.4-10.2); Carbon Dioxide 24 mmol/L (22-30); Chloride 103 mmol/L (98-107); Glucose 125 mg/dL (74-99); Non-African American GFR(CKD) 89 (>60 ml/min/1.73 sqM); Sodium 136 mmol/L (137-145); Total Bilirubin 0.6 mg/dL (0.2-1.3); Total Protein 6.5 g/dL (6.3-8.2)
[2019-11-15 20:55] LABS: Partial Thromboplastin Time 24.2 sec (22.0-30.0); Prothrombin Time 10.1 sec (9.0-12.0)
[2019-11-15 21:54] LABS: Appearance,Urine Clear (Clear); Bilirubin,Urine Negative (Negative); Blood,Urine Negative (Negative); Color,Urine Yellow; Glucose,Urine (UA) Negative (Negative); Hyaline Casts,Urine 1 /lpf (0-2); Ketones,Urine 1+ (Negative); Leukocyte Esterase,Urine Small (Negative); Mucus,Urine Occasional /hpf; Nitrite,Urine Negative (Negative); PH, Urine 5.5 (5.0-8.0); Protein,Urine Trace (Negative); RBC,Urine 1 /hpf (0-5); Squamous Epithelial Cell,Urine <1 /hpf (0-4); Urobilinogen,Urine <2.0 mg/dL (<2.0); WBC,Urine 9 /hpf (0-5)
--- NOTE | 2019-11-15 22:01 | CT ---
EXAMINATION TYPE: CT abdomen pelvis w con DATE OF EXAM: 11/15/2019 COMPARISON: 12/25/2018 HISTORY: Upper abdominal pain. CT DLP: 322.2 mGycm Automated exposure control for dose reduction was used. CONTRAST: Performed with IV Contrast, patient injected with 70 mL of Isovue 300. Images were obtained from the diaphragm to the floor the pelvis with IV contrast. Lung bases are giovanni r. Heart size is normal. There is no pericardial effusion. Abdominal aorta is atheromatous. Liver spl een stomach gallbladder appear normal. The bile ducts are not dilated. There is no evidence of pancre atic mass. There is no adrenal mass. Kidneys show satisfactory contrast opacification. There is no hydronephrosi s. Delayed images show normal renal excretion. There are small right-sided renal cortical cysts. Ther e is no retroperitoneal adenopathy. Bladder distends smoothly. There is no inguinal hernia. There is 2 cm calcification in the pelvis. There is apparent hysterectomy. There are some cystic areas in the cul-de-sac that measure up to 3.7 cm. These are also present on old exam and not significantly differ ent. These are probably ovarian chronic cysts. The right side cyst appears to contain the to centimet er calcification. There is no evidence of free air. There is no ascites. There is no mesenteric edema. There is no bowel obstruction. Appendix is not seen. There is no sign o f thickened appendix. There is L2- 3 disc space narrowing with sclerosis. There is no lumbar compress ion fracture. Bony pelvis appears intact. There is significant atherosclerotic vascular disease involving the abdominal aorta and its proximal branches. IMPRESSION: Cystic masses in the pelvis with calcification also present on old exam and not significantly differe nt. There is clearing of a small amount of free fluid in the pelvis on the right side compared to old exam. Appendix not definitely seen. There is no bowel obstruction. Moderate atherosclerotic vascular disease. There is probably significant stenosis of the lower abdomi nal aorta and the common iliac arteries. There is probably stenosis of the celiac artery and superior mesenteric artery at the origins.
--- NOTE | 2019-11-15 22:13 | ED ---
Abdominal Pain HPI - General Chief Complaint: Abdominal Pain Stated Complaint: Abd Pain, Nausea Time Seen by Provider: 11/15/19 19:39 Source: patient Mode of arrival: wheelchair Limitations: no limitations - History of Present Illness Initial Comments: 79-year-old female presents to the emergency department this evening with complaints of persistent, mid to upper abdominal pain, onset yesterday. Patient states she has poor appetite and nausea as well. Denies any vomiting. Denies fever, chills, urinary difficulty, and diarrhea. She does report similar episode of pain about one year ago. Denies history of abdominal surgery. Patient denies any recent rash, cough, shortness of breath, chest pain, constipation, back pain, numbness, tingling, dizziness, weakness, hematuria, urinary urgency, urinary frequency, headache, visual changes, or any other complaints. - Related Data Home Medications Medication Instructions Recorded Confirmed Aspirin 81 mg PO DAILY 07/04/16 11/15/19 Atorvastatin [Lipitor] 10 mg PO HS 07/04/16 11/15/19 Lisinopril-Hctz 10-12.5 mg 1 tab PO BID 07/04/16 11/15/19 [Zestoretic 10-12.5] Cholecalciferol (Vitamin D3) 2,000 unit PO DAILY 07/31/17 11/15/19 [Vitamin D3] Fluticasone/Salmeterol [Advair 1 puff INHALATION RT-BID 07/31/17 11/15/19 250-50 Diskus] Denosumab [Prolia] 60 mg SQ Q180D 11/15/19 11/15/19 Glucosamine/Chondr Israel A Sod [Osteo 1 tab PO DAILY 11/15/19 11/15/19 Bi-Flex Caplet] Multivit-Min/Iron/Folic/Lutein 1 tab PO DAILY 11/15/19 11/15/19 [Centrum Silver Women Tablet] Previous Rx's Medication Instructions Recorded Rivaroxaban [Xarelto] 2.5 mg PO BID #60 tab 01/04/19 Allergies Allergy/AdvReac Type Severity Reaction Status Date / Time No Known Allergies Allergy Verified 11/15/19 23:26 Review of Systems ROS Statement: Those systems with pertinent positive or pertinent negative responses have been documented in the HPI. ROS Other: All systems not noted in ROS Statement are negative. Past Medical History Past Medical History: Hyperlipidemia, Hypertension, Osteoarthritis (OA) Additional Past Medical History / Comment(s): OSTEOPOROSIS. History of Any Multi-Drug Resistant Organisms: None Reported Past Surgical History: Orthopedic Surgery Additional Past Surgical History / Comment(s): D&C. LEFT WRIST FRACTURE. Past Anesthesia/Blood Transfusion Reactions: No Reported Reaction Past Psychological History: No Psychological Hx Reported, Depression Smoking Status: Current every day smoker Past Alcohol Use History: None Reported Past Drug Use History: None Reported - Past Family History Daughter(s) Family Medical History: Hyperlipidemia, Hypertension General Exam Limitations: no limitations General appearance: alert, in no apparent distress, other (Well-developed female with a slight frame presents in no acute distress. Initial temperature 98.0 F, pulse 93, respirations 16, blood pressure 139/66, pulse ox 97% on room air.) Respiratory exam: Present: normal lung sounds bilaterally. Absent: respiratory distress, wheezes, rales, rhonchi, stridor Cardiovascular Exam: Present: regular rate, normal rhythm, normal heart sounds. Absent: systolic murmur, diastolic murmur, rubs, gallop, clicks GI/Abdominal exam: Present: soft, tenderness ( tenderness diffusely across abdomen and bilateral flanks), normal bowel sounds Extremities exam: Present: normal inspection, full ROM, normal capillary refill. Absent: tenderness, pedal edema, joint swelling, calf tenderness Neurological exam: Present: alert, oriented X3, CN II-XII intact, other (Patient is very hard of hearing) Psychiatric exam: Present: normal affect, normal mood Skin exam: Present: warm, dry, intact, normal color. Absent: rash Course Vital Signs 11/15/19 11/15/19 11/15/19 19:20 20:22 23:14 Temperature 98.0 F 97.9 F Pulse Rate 93 84 97 Respiratory 16 18 16 Rate Blood Pressure 139/66 120/65 156/69 O2 Sat by Pulse 97 94 L 94 L Oximetry Medical Decision Making - Medical Decision Making 79-year-old female presents with complaints of persistent, nagging mid upper abdominal pain accompanied by nausea, onset yesterday. Abdomen and bilateral flanks are diffusely tender. Patient also reports poor appetite, which is not unusual for her. No fever, urinary symptoms, or diarrhea reported. Patient was given IV fluids, morphine, and Zofran in the emergency department with some improvement, however her symptoms have not entirely resolved and patient does have an elevated white blood cell count therefore she will be admitted with i ntractable abdominal pain. Dr. Acosta is accepting. - Lab Data Result diagrams: 11/15/19 20:12 11/15/19 20:12 Lab Results 11/15/19 11/15/19 11/15/19 Range/Units 20:12 20:12 20:12 WBC 15.0 H (3.8-10.6) k/uL RBC 4.07 (3.80-5.40) m/uL Hgb 12.6 (11.4-16.0) gm/dL Hct 38.2 (34.0-46.0) % MCV 94.0 (80.0-100.0) fL MCH 31.0 (25.0-35.0) pg MCHC 33.0 (31.0-37.0) g/dL RDW 12.4 (11.5-15.5) % Plt Count 250 (150-450) k/uL Neutrophils % 86 % Lymphocytes % 8 % Monocytes % 5 % Eosinophils % 1 % Basophils % 0 % Neutrophils # 12.8 H (1.3-7.7) k/uL Lymphocytes # 1.1 (1.0-4.8) k/uL Monocytes # 0.7 (0-1.0) k/uL Eosinophils # 0.1 (0-0.7) k/uL Basophils # 0.0 (0-0.2) k/uL PT (9.0-12.0) sec INR (<1.2) APTT (22.0-30.0) sec Sodium 136 L (137-145) mmol/L Potassium 4.0 (3.5-5.1) mmol/L Chloride 103 (98-107) mmol/L Carbon Dioxide 24 (22-30) mmol/L Anion Gap 9 mmol/L BUN 28 H (7-17) mg/dL Creatinine 0.57 (0.52-1.04) mg/dL Est GFR (CKD-EPI)AfAm >90 (>60 ml/min/1.73 sqM) Est GFR (CKD-EPI)NonAf 89 (>60 ml/min/1.73 sqM) Glucose 125 H (74-99) mg/dL Calcium 9.8 (8.4-10.2) mg/dL Total Bilirubin 0.6 (0.2-1.3) mg/dL AST 25 (14-36) U/L ALT 20 (4-34) U/L Alkaline Phosphatase 48 (38-126) U/L Troponin I (0.000-0.034) ng/mL Total Protein 6.5 (6.3-8.2) g/dL Albumin 4.1 (3.5-5.0) g/dL Lipase 85 (23-300) U/L Urine Color Yellow Urine Appearance Clear (Clear) Urine pH 5.5 (5.0-8.0) Ur Specific Point 1.050 H (1.001-1.035) Urine Protein Trace H (Negative) Urine Glucose (UA) Negative (Negative) Urine Ketones 1+ H (Negative) Urine Blood Negative (Negative) Urine Nitrite Negative (Negative) Urine Bilirubin Negative (Negative) Urine Urobilinogen <2.0 (<2.0) mg/dL Ur Leukocyte Esterase Small H (Negative) Urine RBC 1 (0-5) /hpf Urine WBC 9 H (0-5) /hpf Ur Squamous Epith Cells <1 (0-4) /hpf Hyaline Casts 1 (0-2) /lpf Urine Mucus Occasional H (None) /hpf 11/15/19 11/15/19 Range/Units 20:12 20:16 WBC (3.8-10.6) k/uL RBC (3.80-5.40) m/uL Hgb (11.4-16.0) gm/dL Hct (34.0-46.0) % MCV (80.0-100.0) fL MCH (25.0-35.0) pg MCHC (31.0-37.0) g/dL RDW (11.5-15.5) % Plt Count (150-450) k/uL Neutrophils % % Lymphocytes % % Monocytes % % Eosinophils % % Basophils % % Neutrophils # (1.3-7.7) k/uL Lymphocytes # (1.0-4.8) k/uL Monocytes # (0-1.0) k/uL Eosinophils # (0-0.7) k/uL Basophils # (0-0.2) k/uL PT 10.1 (9.0-12.0) sec INR 1.0 (<1.2) APTT 24.2 (22.0-30.0) sec Sodium (137-145) mmol/L Potassium (3.5-5.1) mmol/L Chloride (98-107) mmol/L Carbon Dioxide (22-30) mmol/L Anion Gap mmol/L BUN (7-17) mg/dL Creatinine (0.52-1.04) mg/dL Est GFR (CKD-EPI)AfAm (>60 ml/min/1.73 sqM) Est GFR (CKD-EPI)NonAf (>60 ml/min/1.73 sqM) Glucose (74-99) mg/dL Calcium (8.4-10.2) mg/dL Total Bilirubin (0.2-1.3) mg/dL AST (14-36) U/L ALT (4-34) U/L Alkaline Phosphatase (38-126) U/L Troponin I <0.012 (0.000-0.034) ng/mL Total Protein (6.3-8.2) g/dL Albumin (3.5-5.0) g/dL Lipase (23-300) U/L Urine Color Urine Appearance (Clear) Urine pH (5.0-8.0) Ur Specific Point (1.001-1.035) Urine Protein (Negative) Urine Glucose (UA) (Negative) Urine Ketones (Negative) Urine Blood (Negative) Urine Nitrite (Negative) Urine Bilirubin (Negative) Urine Urobilinogen (<2.0) mg/dL Ur Leukocyte Esterase (Negative) Urine RBC (0-5) /hpf Urine WBC (0-5) /hpf Ur Squamous Epith Cells (0-4) /hpf Hyaline Casts (0-2) /lpf Urine Mucus (None) /hpf - EKG Data -: EKG Interpreted by Me EKG Comments: EKG obtained at 2057 shows normal sinus rhythm with a ventricular rate of 86, ND interval 184, QRS duration 104, QT 378, QTC 452. No evidence of ST elevation or depression. Disposition Clinical Impression: Intractable abdominal pain Disposition: ADMITTED IP TO THIS [facility] Condition: Serious Decision to Admit Reason: Admit from EC Decision Date: 11/15/19 Decision Time: 22:52
[2019-11-15] MEDS ORDERED: MAG HYDROX/AL HYDROX/SIMETH 30 ML, HYOSCYAMINE ELIXIR 10 ML, LIDOCAINE VISCOUS 2% 10 ML PO STA ×3 (22:44)
[2019-11-15] MEDS ORDERED: NALOXONE 0.4 MG/ML 1 ML VIAL IV PRN (22:46)
[2019-11-15] MEDS ORDERED: MORPHINE SULFATE 4 MG/ML SYRINGE IV PRN (22:46)
[2019-11-15] MEDS ORDERED: ONDANSETRON 4 MG/2 ML VIAL IVP PRN (22:46)
[2019-11-15] MEDS ORDERED: SODIUM CHLORIDE 0.9% 1,000 ML IV SCH (23:00)
--- NOTE | 2019-11-16 03:00 | P.HPIM ---
History of Present Illness H&P Date: 11/15/19 Patient is a 79-year-old female with a PMH of tobacco abuse, hypertension and hyperlipidemia presented to the ED with complaints of abdominal pain. The patient reported that her pain started suddenly yesterday, is periumbilical, achy in nature, constant, 6 out of 10 in intensity at home though had improved to 2 out of 10 with medications in the emergency room. Reports that the pain is not worsened after eating. There is no clear alleviating or exacerbating features. She denied associated nausea, vomiting, diarrhea, dysuria. Reports poor appetite and decreased oral intake due to the pain. Denied cough, fever, chills, chest pain, shortness of breath. 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 Laboratory evaluation revealed a WBC of 15.0, troponin less than 0.02, UA unremarkable, glucose 125, BUN 28, and sodium 136. Of note, the patient had presented to the emergency room in 12/24 for similar complaints at which time vascular surgery was consulted due to atherosclerosis of the abdominal vessels. At that time, vascular surgery had felt that the patient's symptoms do not fit the picture of mesenteric ischemia and she was recommended to consume small meals with protein intake with outpatient follow-up and was started on Xarelto. Review of Systems Pertinent positives and negatives as discussed in HPI, a complete review of systems was performed and all other systems are negative. Past Medical History Past Medical History: Hyperlipidemia, Hypertension, Osteoarthritis (OA) Additional Past Medical History / Comment(s): OSTEOPOROSIS. History of Any Multi-Drug Resistant Organisms: None Reported Past Surgical History: Orthopedic Surgery Additional Past Surgical History / Comment(s): D&C. LEFT WRIST FRACTURE. Past Anesthesia/Blood Transfusion Reactions: No Reported Reaction Past Psychological History: No Psychological Hx Reported, Depression Smoking Status: Current every day smoker Past Alcohol Use History: None Reported Past Drug Use History: None Reported - Past Family History Daughter(s) Family Medical History: Hyperlipidemia, Hypertension Medications and Allergies Home Medications Medication Instructions Recorded Confirmed Type Aspirin 81 mg PO DAILY 07/04/16 11/15/19 History Atorvastatin [Lipitor] 10 mg PO HS 07/04/16 11/15/19 History Lisinopril-Hctz 10-12.5 mg 1 tab PO BID 07/04/16 11/15/19 History [Zestoretic 10-12.5] Cholecalciferol (Vitamin D3) 2,000 unit PO DAILY 07/31/17 11/15/19 History [Vitamin D3] Fluticasone/Salmeterol [Advair 1 puff INHALATION RT-BID 07/31/17 11/15/19 History 250-50 Diskus] Rivaroxaban [Xarelto] 2.5 mg PO BID #60 tab 01/04/19 11/15/19 Rx Denosumab [Prolia] 60 mg SQ Q180D 11/15/19 11/15/19 History Glucosamine/Chondr Israel A Sod [Osteo 1 tab PO DAILY 11/15/19 11/15/19 History Bi-Flex Caplet] Multivit-Min/Iron/Folic/Lutein 1 tab PO DAILY 11/15/19 11/15/19 History [Centrum Silver Women Tablet] Allergies Allergy/AdvReac Type Severity Reaction Status Date / Time No Known Allergies Allergy Verified 11/15/19 23:26 Physical Exam Vitals: Vital Signs Temp Pulse Resp BP Pulse Ox 11/15/19 23:14 97.9 F 97 16 156/69 94 L 11/15/19 20:22 84 18 120/65 94 L 11/15/19 19:20 98.0 F 93 16 139/66 97 Intake and Output 11/15/19 11/15/19 11/16/19 14:59 22:59 06:59 Other: Weight 34.473 kg General: Thin elderly female, non toxic, no distress, appears at stated age Derm: no unusual rashes/lesions no unusual ecchymoses, warm, dry Head: atraumatic, normocephalic, symmetric Eyes: EOMI, no lid lag, anicteric sclera, pupils equal round reactive to light ENT: Nose and ears atraumatic, no thrush, no pharyngeal erythema Neck: No thyromegaly, no cervical lymphadenopathy, trachea midline, supple Mouth: no lip lesion, mucus membranes moist Cardiovascular: S1S2 reg, no murmur, positive posterior tibial pulse bilateral, no edema, capillary refill less than 2 seconds Lungs: CTA bilateral, no rhonchi, no rales , no accessory muscle use Abdominal: soft, nontender to palpation, no guarding, no appreciable organomegaly, normal bowel sounds Ext: no gross muscle atrophy, muscle strength 5 out of 5 in all 4 extremities g rossly, no contractures, Neuro: CN II-XI grossly intact, light touch intact all 4 extremities, finger to nose within normal limits, Psych: Alert, oriented, appropriate affect Results CBC & Chem 7: 11/15/19 20:12 11/15/19 20:12 Labs: Abnormal Lab Results - Last 24 Hours (Table) 11/15/19 11/15/19 11/15/19 Range/Units 20:12 20:12 20:12 WBC 15.0 H (3.8-10.6) k/uL Neutrophils # 12.8 H (1.3-7.7) k/uL Sodium 136 L (137-145) mmol/L BUN 28 H (7-17) mg/dL Glucose 125 H (74-99) mg/dL Ur Specific [place] 1.050 H (1.001-1.035) Urine Protein Trace H (Negative) Urine Ketones 1+ H (Negative) Ur Leukocyte Esterase Small H (Negative) Urine WBC 9 H (0-5) /hpf Urine Mucus Occasional H (None) /hpf Assessment and Plan Plan: Abdominal pain, in presence of significant atherosclerotic disease of the abdom inal vessels -The patient continues to deny post prandial abdominal pain and again does not fit the picture for mesenteric ischemia -Consult GI for now -May consider vascular surgery if patient's symptoms persist -Pain control -IV fluids -Continue with Xarelto Prerenal azotemia -Continue with IV fluids and monitor BMP Chronic conditions: Hypertension, hyperlipidemia, tobacco abuse -Continue with home medications -Hold off on diuretic in setting of prerenal azotemia DVT prophylaxis -Xarelto The patient is admitted with an anticipated less than 2 midnight stay for evaluation of abdominal pain. CODE STATUS: No Code Discussed with: Patient, Daughter Anticipated discharge date: 11/[address]: Home A total of 40 minutes was spent on the care of this complex patient more than 50% of the time was spent in counseling and care coordination.
--- NOTE | 2019-11-16 03:04 | P.PN ---
Progress Note - Text Progress Note Date: 11/16/19 Advanced Care Planning Active Diagnosis: Abdominal pain, hypertension, hyperlipidemia Persons present: Patient, daughter Summary: Discussed the patient's goals of care in extensive detail. The patient noted that she has previously told her daughter her wishes, though had not specify regarding resuscitation. Explained the caveats of CPR and different forms of life support. The patient notes that she already feels frail and is concerned that if she was to have a cardiac arrest, that she will not have good quality of life. The patient notes that she has always told her family that if she was not able to have decent quality of life which includes for her being able to get up and walk around and take care of her things on her own, that she would not wish to be brought back with life support or CPR. She also notes that she does not wish to undergo any forms of life support even on an elective basis. Answered questions for the patient and her daughter at the bedside. Will make the patient No Code. Time spent: Total time spent face to face in education and discussion directly related to advanced care plannin minutes
[2019-11-16] MEDS ORDERED: SYMBICORT 80-4.5 MCG INHALER INHALATION SCH (08:00)
[2019-11-16 08:09] LABS: Basophils % (A) 0 %; Eosinophils # (A) 0.1 k/uL (0-0.7); Eosinophils % (A) 1 %; HGB 11.8 gm/dL (11.4-16.0); Lymphocytes # (A) 1.3 k/uL (1.0-4.8); Lymphocytes % (A) 10 %; MCH 32.4 pg (25.0-35.0); MCHC 33.8 g/dL (31.0-37.0); MCV 95.8 fL (80.0-100.0); Mean Platelet Volume 7.7; Monocytes # (A) 0.6 k/uL (0-1.0); Monocytes % (A) 5 %; Neutrophils # (A) 10.8 k/uL (1.3-7.7); Neutrophils % (A) 83 %; Platelet Count 213 k/uL (150-450); RBC 3.65 m/uL (3.80-5.40); RDW 12.6 % (11.5-15.5)
[2019-11-16] MEDS ORDERED: ALBUTEROL NEBULIZED 2.5 MG/3 ML INHALATION PRN (08:13)
[2019-11-16] MEDS ORDERED: PANTOPRAZOLE 40 MG TABLET PO SCH (08:15)
[2019-11-16 08:23] LABS: ALT 18 U/L (4-34); AST 26 U/L (14-36); African American GFR (CKD) >90 (>60 ml/min/1.73 sqM); Albumin 3.3 g/dL (3.5-5.0); Alkaline Phosphatase 44 U/L (38-126); Anion Gap 6 mmol/L; Blood Urea Nitrogen 22 mg/dL (7-17); Calcium 8.6 mg/dL (8.4-10.2); Carbon Dioxide 25 mmol/L (22-30); Chloride 105 mmol/L (98-107); Glucose 92 mg/dL (74-99); Non-African American GFR(CKD) 82 (>60 ml/min/1.73 sqM); Potassium 4.2 mmol/L (3.5-5.1); Sodium 136 mmol/L (137-145); Total Bilirubin 0.6 mg/dL (0.2-1.3); Total Protein 5.5 g/dL (6.3-8.2)
[2019-11-16] MEDS ORDERED: RIVAROXABAN 2.5 MG TABLET PO SCH (09:00)
[2019-11-16] MEDS ORDERED: ASPIRIN 81 MG PO SCH (09:00)
[2019-11-16] MEDS ORDERED: lisinopriL 10 MG TAB PO SCH (09:00)
[2019-11-16 10:09] VITALS: BP 114/64; PULSE 66; RESP 18; TEMP 97.7
--- NOTE | 2019-11-16 12:53 | P.CONS ---
History of Present Illness - Reason for Consult Consult date: 11/16/19 Abdominal pain Requesting physician: Mari Muse - Chief Complaint Abdominal pain - History of Present Illness 79-year-old female with a past medical history significant for tobacco abuse, hypertension and hyperlipidemia who presents to the hospital with complaints of abdominal pain. Patient reports periumbilical and epigastric pain. She describes it as sharp and achy in nature and states that currently the pain appears to be improved. She denies any nausea or vomiting associated with her pain. She denies any signs or symptoms of GI bleeding or change in bowel habits with no diarrhea or constipation and states that bowel movements are generally every day or every other day. She does report some indigestion but denies any dysphagia, odynophagia or burning reflux. Patient has a known history of intra- abdominal atherosclerosis seen on prior imaging performed for similar symptoms. She was evaluated by the vascular surgery service at that time. Computed tomography scan Performed on current hospitalization significant for moderate atherosclerotic vascular disease with suspicion for a significant stenosis of the lower abdominal aorta and common iliac arteries as well as the celiac artery and superior mesenteric artery. Laboratory evaluation on presentation significant for WBC 13, hemoglobin 11.8, bili count 213,000 with total bilirubin 0.6, alkaline phosphatase 44, AST 26 and ALT 18. Review of Systems REVIEW OF SYSTEMS: CONSTITUTIONAL: Denies any fevers, chills, weight change or fatigue. CARDIOVASCULAR: Denies any chest pain, palpitations high or low blood pressures RESPIRATORY: Denies any shortness of breath, hemoptysis or cough. GENITOURINARY: No dysuria or hematuria. MUSCULOSKELETAL: No weakness reported. SKIN: Denies any new rashes or lesions, jaundice or pallor. PSYCHIATRIC: Denies any depression or anxiety. NEUROLOGY: Denies headache, denies any new focal deficits. EARS/NOSE/THROAT: No recent hearing change, congestion, nasal discharge or sore throat. EYES: No pain in eyes, discharge or change in vision. GASTROINTESTINAL: As per HPI. Past Medical History Past Medical History: Hyperlipidemia, Hypertension, Osteoarthritis (OA) Additional Past Medical History / Comment(s): OSTEOPOROSIS. History of Any Multi-Drug Resistant Organisms: None Reported Past Surgical History: Orthopedic Surgery Additional Past Surgical History / Comment(s): D&C. LEFT WRIST FRACTURE. Past Anesthesia/Blood Transfusion Reactions: No Reported Reaction Past Psychological History: No Psychological Hx Reported, Depression Smoking Status: Current every day smoker Past Alcohol Use History: None Reported Past Drug Use History: None Reported - Past Family History Daughter(s) Family Medical History: Hyperlipidemia, Hypertension Medications and Allergies Home Medications Medication Instructions Recorded Confirmed Type Aspirin 81 mg PO DAILY 07/04/16 11/15/19 History Atorvastatin [Lipitor] 10 mg PO HS 07/04/16 11/15/19 History Lisinopril-Hctz 10-12.5 mg 1 tab PO BID 07/04/16 11/15/19 History [Zestoretic 10-12.5] Cholecalciferol (Vitamin D3) 2,000 unit PO DAILY 07/31/17 11/15/19 History [Vitamin D3] Fluticasone/Salmeterol [Advair 1 puff INHALATION RT-BID 07/31/17 11/15/19 History 250-50 Diskus] Rivaroxaban [Xarelto] 2.5 mg PO BID #60 tab 01/04/19 11/15/19 Rx Denosumab [Prolia] 60 mg SQ Q180D 11/15/19 11/15/19 History Glucosamine/Chondr Israel A Sod [Osteo 1 tab PO DAILY 11/15/19 11/15/19 History Bi-Flex Caplet] Multivit-Min/Iron/Folic/Lutein 1 tab PO DAILY 11/15/19 11/15/19 History [Centrum Silver Women Tablet] Allergies Allergy/AdvReac Type Severity Reaction Status Date / Time No Known Allergies Allergy Verified 11/15/19 23:26 Physical Exam Vitals: Vital Signs Temp Pulse Pulse Resp BP BP Pulse Ox 11/16/19 09:00 97.7 F 66 18 114/64 97 11/16/19 08:47 88 11/16/19 08:40 82 11/16/19 02:55 98.6 F 92 20 106/50 92 L 11/15/19 23:41 98.2 F 91 20 142/62 92 L 11/15/19 23:14 97.9 F 97 16 156/69 94 L 11/15/19 20:22 84 18 120/65 94 L 11/15/19 19:20 98.0 F 93 16 139/66 97 Intake and Output 11/15/19 11/16/19 11/16/19 22:59 06:59 14:59 Other: Voiding Method Toilet # Voids 1 Weight 34.473 kg 34.473 kg On physical examination, patient appears comfortable in no apparent distress. HEAD: Normocephalic, atraumatic. EYES: No scleral icterus. No conjunctival injection. MOUTH: No lesions, tongue midline. NECK: Trachea midline, no gross abnormalities. CHEST: Clear to auscultation with no wheezing or rhonchi appreciated. HEART: Regular rate and rhythm. ABDOMEN: Soft, thin and nontender to palpation. Bowel sounds are positive. No organomegaly. No guarding or rigidity. EXTREMITIES: No pedal edema. SKIN: No rashes, no jaundice. NEUROLOGIC: Alert and oriented x3. No focal deficits. Results CBC & Chem 7: 11/16/19 07:07 11/16/19 07:07 Labs: Abnormal Lab Results - Last 24 Hours (Table) 11/15/19 11/15/19 11/15/19 Range/Units 20:12 20:12 20:12 WBC 15.0 H (3.8-10.6) k/uL RBC (3.80-5.40) m/uL Neutrophils # 12.8 H (1.3-7.7) k/uL Sodium 136 L (137-145) mmol/L BUN 28 H (7-17) mg/dL Glucose 125 H (74-99) mg/dL Total Protein (6.3-8.2) g/dL Albumin (3.5-5.0) g/dL Ur Specific Lyman 1.050 H (1.001-1.035) Urine Protein Trace H (Negative) Urine Ketones 1+ H (Negative) Ur Leukocyte Esterase Small H (Negative) Urine WBC 9 H (0-5) /hpf Urine Mucus Occasional H (None) /hpf 11/16/19 11/16/19 Range/Units 07:07 07:07 WBC 13.0 H (3.8-10.6) k/uL RBC 3.65 L (3.80-5.40) m/uL Neutrophils # 10.8 H (1.3-7.7) k/uL Sodium 136 L (137-145) mmol/L BUN 22 H (7-17) mg/dL Glucose (74-99) mg/dL Total Protein 5.5 L (6.3-8.2) g/dL Albumin 3.3 L (3.5-5.0) g/dL Ur Specific Lyman (1.001-1.035) Urine Protein (Negative) Urine Ketones (Negative) Ur Leukocyte Esterase (Negative) Urine WBC (0-5) /hpf Urine Mucus (None) /hpf CT scan - abdomen: report reviewed (Computed tomography scan Performed on current hospitalization significant for moderate atherosclerotic vascular disease with suspicion for a significant stenosis of the lower abdominal aorta and common iliac arteries as well as the celiac artery and superior mesenteric artery.) Assessment and Plan (1) Intractable abdominal pain Narrative/Plan: 79-year-old female with medical history significant for tobacco abuse, hypertension and dyslipidemia as well as moderate atherosclerosis who presented to the hospital due to concerns over abdominal pain. She describes symptoms of periumbilical pain achy and sharp in nature and also reports problems with indigestion. No signs or symptoms of GI bleeding reported. No change in bowel habits reported patient denying any diarrhea or constipation. Computed tomography scan of the abdomen with multiple findings including that of moderate atherosclerosis the intra-abdominal vasculature. Unclear etiology of the symptoms, may be related to functional bowel disorder, chronic mesenteric ischemia, or other etiology. Current Visit: Yes Status: Acute Code(s): R10.9 - UNSPECIFIED ABDOMINAL PAIN SNOMED Code(s): 38726340 (2) GERD (gastroesophageal reflux disease) Current Visit: Yes Status: Acute Code(s): K21.9 - GASTRO-ESOPHAGEAL REFLUX DISEASE WITHOUT ESOPHAGITIS SNOMED Code(s): 502403322 Plan: Supportive care Okay for trial of diet as abdominal pain is currently improved Continue small frequent meals with supplementation with dietary supplements such as boost or ensure Protonix daily added for suspected GERD Would recommend follow-up in the outpatient setting for scheduling of endoscopic evaluation, no prior history of colonoscopy Recommend follow-up with the vascular surgery service for reassessment Thank you for allowing us to participate in the care of the patient
--- NOTE | 2019-11-16 13:35 | P.DS ---
Providers Date of admission: 11/15/19 23:11 Expected date of discharge: 11/16/19 Attending physician: Brent Acosta MD Consults: 11/15/19 22:47 Consult Physician Routine Consulting Provider: Kyrie Cameron Consult Reason/Comments: Midepigastric pain Do you want consulting provider notified?: Yes Primary care physician: Marlon Ellis Hospital Course: Discharge Diagnosis: Abdominal pain Probable dyspepsia Peripheral vascular disease Tobacco abuse Dehydration HTN HLD Hospital Course: Patient is a 79-year-old female with tobacco abuse, hypertension, and dyslipidemia who presented to the emergency department with complaints of abdominal pain. In the ER she underwent an extensive evaluation. Her vital signs within normal limits on arrival. Laboratory analysis was remarkable for a white cell count of 15. She underwent a CT abdomen and pelvis which showed Pelivc cystic lesion consistent with chronic ovarian cyst and no other acute pathology. Se was started on GI cocktail and was placed in observation for furhter monitoring. She was started on a PPI. She had improvement in her abdominal pain. She was able to tolerate a diet. She was seen by GI and will follow in the clinic. She will continue her PPI. She will follow with Dr. Ward next week. 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 She will follow-up as outpatient and continue her Aspirin Patient seen and examined at bedside. Abdominal pain improved. No nausea, no vomiting, no diarrhea. Vital signs reviewed and stable. General: non toxic, no distress, appears at stated age Derm: warm, dry Head: atraumatic, normocephalic, symmetric Eyes: EOMI, no lid lag, anicteric sclera Mouth: no lip lesion, mucus membranes moist Cardiovascular: S1S2 reg, no murmur, positive posterior tibial pulse bilateral, Lungs: CTA bilateral, no rhonchi, no rales , no accessory muscle use Abdominal: soft, +tender to palpation right and left lower quadrant, no guarding, no appreciable organomegaly Ext: no gross muscle atrophy, no edema, no contractures Neuro: CN II-XI grossly intact, no focal neuro deficits Psych: Alert, oriented, appropriate affect A total of 25 minutes of time were spent preparing this complex discharge summary . Patient Condition at Discharge: Stable Plan - Discharge Summary Discharge Rx Participant: No New Discharge Prescriptions: New Pantoprazole [Protonix] 40 mg PO AC-BRKFST #30 tablet. Continue Lisinopril-Hctz 10-12.5 mg [Zestoretic 10-12.5] 1 tab PO BID Atorvastatin [Lipitor] 10 mg PO HS Aspirin 81 mg PO DAILY Fluticasone/Salmeterol [Advair 250-50 Diskus] 1 puff INHALATION RT-BID Cholecalciferol (Vitamin D3) [Vitamin D3] 2,000 unit PO DAILY Rivaroxaban [Xarelto] 2.5 mg PO BID #60 tab Denosumab [Prolia] 60 mg SQ Q180D Glucosamine/Chondr Israel A Sod [Osteo Bi-Flex Caplet] 1 tab PO DAILY Multivit-Min/Iron/Folic/Lutein [Centrum Silver Women Tablet] 1 tab PO DAILY Discharge Medication List Aspirin 81 mg PO DAILY 07/04/16 [History] Atorvastatin [Lipitor] 10 mg PO HS 07/04/16 [History] Lisinopril-Hctz 10-12.5 mg [Zestoretic 10-12.5] 1 tab PO BID 07/04/16 [History] Cholecalciferol (Vitamin D3) [Vitamin D3] 2,000 unit PO DAILY 07/31/17 [History] Fluticasone/Salmeterol [Advair 250-50 Diskus] 1 puff INHALATION RT-BID 07/31/17 [History] Rivaroxaban [Xarelto] 2.5 mg PO BID #60 tab 01/04/19 [Rx] Denosumab [Prolia] 60 mg SQ Q180D 11/15/19 [History] Glucosamine/Chondr Israel A Sod [Osteo Bi-Flex Caplet] 1 tab PO DAILY 11/15/19 [History] Multivit-Min/Iron/Folic/Lutein [Centrum Silver Women Tablet] 1 tab PO DAILY 11/15/19 [History] Pantoprazole [Protonix] 40 mg PO AC-BRKFST #30 tablet. 11/16/19 [Rx] Follow up Appointment(s)/Referral(s): Marlon Ellis MD [Primary Care Provider] - 1-2 days Kyrie Cameron MD [STAFF PHYSICIAN] - 2 Weeks Hallie Goodman DO [STAFF PHYSICIAN] - 1 Week Patient Instructions/Handouts: Indigestion (GEN), Gastroesophageal Reflux Disease (DC), Diet for Stomach Ulcers and Gastritis (ED) Discharge Disposition: HOME SELF-CARE
[2019-11-16] MEDS ORDERED: ATORVASTATIN 10 MG TAB PO SCH (21:00)
== END 2019-11-16 14:13 | disposition home or self-care (01) ==
LOC: EC 19:10 → 1SOBS 23:11
PROVIDERS: ADMIT Internal Medicine; ATTEND Internal Medicine
DX: E86.0 Dehydration (principal); K21.9 Gastro-esophageal reflux disease without esophagitis; I73.9 Peripheral vascular disease, unspecified; I11.9 Hypertensive heart disease without heart failure; R10.9 Unspecified abdominal pain; R79.89 Other specified abnormal findings of blood chemistry; D72.829 Elevated white blood cell count, unspecified; N83.209 Unspecified ovarian cyst, unspecified side; E78.5 Hyperlipidemia, unspecified; F17.200 Nicotine dependence, unspecified, uncomplicated; F32.9 Major depressive disorder, single episode, unspecified; M19.90 Unspecified osteoarthritis, unspecified site; M81.0 Age-related osteoporosis without current pathological fracture; Z98.890 Other specified postprocedural states; Z83.438 Family history of other disorder of lipoprotein metabolism and other lipidemia; Z82.49 Family history of ischemic heart disease and other diseases of the circulatory system; Z79.01 Long term (current) use of anticoagulants; Z79.82 Long term (current) use of aspirin; Z79.899 Other long term (current) drug therapy
CPT/HCPCS: 96376 ×2; 96361; 96374; 99285; 36415; 94640; 93005; 80053 ×2; 83690; 84484; 85025 ×2; 85610; 85730; 81001; 74177; G0378 ×2; J2270 ×2; J2405; Q9967; 96365; 96366; 96372; 96375

== ENCOUNTER → 2020-02-16 | Outpatient (CLI) | payer MEDICARE, MEDICAID ==
[2020-02-16 14:22] VITALS: BP 165/61; PULSE 100; RESP 16; TEMP 97.9
== END | disposition home or self-care (01) ==
LOC: PROCWHC3 14:00
PROVIDERS: ATTEND Family Medicine
DX: M81.0 Age-related osteoporosis without current pathological fracture (principal)
CPT/HCPCS: 96372; J0897

== ENCOUNTER → 2020-08-17 | Outpatient (CLI) | payer MEDICARE, MEDICAID ==
[2020-08-17 10:49] VITALS: BP 139/79; PULSE 99; RESP 16; TEMP 97.9
== END ==
LOC: PROCWHC3 10:30
PROVIDERS: ATTEND Family Medicine
DX: M81.0 Age-related osteoporosis without current pathological fracture (principal); F17.200 Nicotine dependence, unspecified, uncomplicated
CPT/HCPCS: 96372; J0897

== ENCOUNTER 2020-09-04 16:17 | Inpatient (IN) | payer MEDICARE, MEDICAID ==
[2020-09-04] MEDS ORDERED: SODIUM CHLORIDE 0.9% 500 ML 380 ML IV STA (16:34)
[2020-09-04] MEDS ORDERED: SODIUM CHLORIDE 0.9% 1,000 ML IV STA (16:34)
[2020-09-04] MEDS ORDERED: ONDANSETRON 4 MG/2 ML VIAL IVP STA (16:34)
[2020-09-04] MEDS ORDERED: FAMOTIDINE 20 MG/2 ML VIAL IV STA (16:36)
[2020-09-04] MEDS ORDERED: cefTRIAXone IN SWFI 1,000 MG/10 ML SYRINGE IVP STA (16:36)
--- NOTE | 2020-09-04 16:49 | ED ---
Abdominal Pain HPI - General Chief Complaint: Abdominal Pain Stated Complaint: abd pain Time Seen by Provider: 09/04/20 16:31 Source: patient, family Mode of arrival: wheelchair Limitations: no limitations - History of Present Illness Initial Comments: 80-year-old female with history of dyslipidemia and hypertension presents to the emergency department with a chief complaint of abdominal pain. Patient states her symptoms began sometime last that it was a gradual onset. States most of the pain is located in the right lower quadrant region with some radiation to the suprapubic region. She also reports having nausea and dry heaves but no actual vomiting. States she is not eating much since yesterday. Patient reports no prior history of abdominal surgeries. Denies any vaginal urinary symptoms. Denies hematuria, hematochezia or melena. Denies any chest pain or shortness of breath. Denies any fevers or chills at home. Patient is a smoker and has COPD. - Related Data Home Medications Medication Instructions Recorded Confirmed Aspirin 81 mg PO DAILY 07/04/16 08/17/20 Atorvastatin [Lipitor] 10 mg PO HS 07/04/16 08/17/20 Lisinopril-Hctz 10-12.5 mg 1 tab PO BID 07/04/16 08/17/20 [Zestoretic 10-12.5] Cholecalciferol (Vitamin D3) 2,000 unit PO DAILY 07/31/17 08/17/20 [Vitamin D3] Fluticasone/Salmeterol [Advair 1 puff INHALATION RT-BID 07/31/17 08/17/20 250-50 Diskus] Denosumab [Prolia] 60 mg SQ Q180D 11/15/19 08/17/20 Glucosamine/Chondr Israel A Sod [Osteo 1 tab PO DAILY 11/15/19 08/17/20 Bi-Flex Caplet] Multivit-Min/Iron/Folic/Lutein 1 tab PO DAILY 11/15/19 08/17/20 [Centrum Silver Women Tablet] Previous Rx's Medication Instructions Recorded Rivaroxaban [Xarelto] 2.5 mg PO BID #60 tab 01/04/19 Pantoprazole [Protonix] 40 mg PO AC-BRKFST #30 tablet. 11/16/19 Allergies Allergy/AdvReac Type Severity Reaction Status Date / Time No Known Allergies Allergy Verified 09/04/20 16:27 Review of Systems ROS Statement: Those systems with pertinent positive or pertinent negative responses have been documented in the HPI. ROS Other: All systems not noted in ROS Statement are negative. Past Medical History Past Medical History: Hyperlipidemia, Hypertension, Osteoarthritis (OA) Additional Past Medical History / Comment(s): OSTEOPOROSIS. History of Any Multi-Drug Resistant Organisms: None Reported Past Surgical History: Orthopedic Surgery Additional Past Surgical History / Comment(s): D&C. LEFT WRIST FRACTURE. Past Anesthesia/Blood Transfusion Reactions: No Reported Reaction Past Psychological History: No Psychological Hx Reported, Bipolar, Depression Smoking Status: Current every day smoker Past Alcohol Use History: None Reported Past Drug Use History: None Reported - Past Family History Daughter(s) Family Medical History: Hyperlipidemia, Hypertension General Exam Limitations: no limitations General appearance: alert, in no apparent distress Head exam: Present: atraumatic, normocephalic, normal inspection Eye exam: Present: normal appearance, PERRL, EOMI Pupils: Present: normal accommodation ENT exam: Present: normal exam, normal oropharynx, mucous membranes moist Neck exam: Present: normal inspection, full ROM. Absent: tenderness Respiratory exam: Present: wheezes (Mild diffuse bilateral wheezing.). Absent: normal lung sounds bilaterally, respiratory distress, rales, rhonchi, stridor Cardiovascular Exam: Present: regular rate, normal rhythm, normal heart sounds. Absent: systolic murmur GI/Abdominal exam: Present: soft, tenderness (Positive McBurney point tenderness. Lower abdominal tenderness). Absent: distended, guarding, rebound, rigid Extremities exam: Present: normal inspection, full ROM, normal capillary refill. Absent: tenderness, pedal edema, joint swelling Back exam: Present: normal inspection, full ROM. Absent: tenderness, CVA tenderness (R), CVA tenderness (L) Neurological exam: Present: alert, oriented X3 Psychiatric exam: Present: normal affect, normal mood Skin exam: Present: warm, dry, intact, normal color Course Vital Signs 09/04/20 09/04/20 16:22 19:33 Temperature 97.5 F L Pulse Rate 106 H 80 Respiratory 16 18 Rate Blood Pressure 86/48 111/56 O2 Sat by Pulse 95 92 L Oximetry Medical Decision Making - Medical Decision Making 80-year-old female with history of dyslipidemia and hypertension presents to the emergency department with a chief complaint of abdominal pain. On physical examination, positive McBurney point tenderness. CBC shows mild leukocytosis of 13,000, likely reactive. CMP unremarkable. UA pending. CT of abdomen and pelvis shows a normal appendix and there is a small bowel obstruction with no transition point. Patient is still passing gas and had bowel movements today. NG tube. Nothing by mouth. I spoke to who will admit. This discussed with Dr. Canela Gen. surgery consult - Lab Data Result diagrams: 09/04/20 16:56 09/04/20 16:56 Lab Results 09/04/20 09/04/20 09/04/20 Range/Units 16:56 16:56 16:56 WBC 13.0 H (3.8-10.6) k/uL RBC 4.25 (3.80-5.40) m/uL Hgb 13.9 (11.4-16.0) gm/dL Hct 39.6 (34.0-46.0) % MCV 93.2 (80.0-100.0) fL MCH 32.6 (25.0-35.0) pg MCHC 35.0 (31.0-37.0) g/dL RDW 13.2 (11.5-15.5) % Plt Count 315 (150-450) k/uL MPV 8.0 Neutrophils % 89 % Lymphocytes % 6 % Monocytes % 3 % Eosinophils % 0 % Basophils % 0 % Neutrophils # 11.7 H (1.3-7.7) k/uL Lymphocytes # 0.8 L (1.0-4.8) k/uL Monocytes # 0.4 (0-1.0) k/uL Eosinophils # 0.0 (0-0.7) k/uL Basophils # 0.0 (0-0.2) k/uL Sodium 135 L (137-145) mmol/L Potassium 4.3 (3.5-5.1) mmol/L Chloride 99 (98-107) mmol/L Carbon Dioxide 22 (22-30) mmol/L Anion Gap 14 mmol/L BUN 32 H (7-17) mg/dL Creatinine 0.75 (0.52-1.04) mg/dL Est GFR (CKD-EPI)AfAm 88 (>60 ml/min/1.73 sqM) Est GFR (CKD-EPI)NonAf 76 (>60 ml/min/1.73 sqM) Glucose 131 H (74-99) mg/dL Plasma Lactic Acid Alexei 2.0 (0.7-2.0) mmol/L Calcium 9.9 (8.4-10.2) mg/dL Total Bilirubin 0.9 (0.2-1.3) mg/dL AST 36 (14-36) U/L ALT 22 (4-34) U/L Alkaline Phosphatase 53 (38-126) U/L Troponin I (0.000-0.034) ng/mL Total Protein 7.2 (6.3-8.2) g/dL Albumin 4.5 (3.5-5.0) g/dL Amylase 64 (30-110) U/L Lipase 70 (23-300) U/L 09/04/20 Range/Units 16:56 WBC (3.8-10.6) k/uL RBC (3.80-5.40) m/uL Hgb (11.4-16.0) gm/dL Hct (34.0-46.0) % MCV (80.0-100.0) fL MCH (25.0-35.0) pg MCHC (31.0-37.0) g/dL RDW (11.5-15.5) % Plt Count (150-450) k/uL MPV Neutrophils % % Lymphocytes % % Monocytes % % Eosinophils % % Basophils % % Neutrophils # (1.3-7.7) k/uL Lymphocytes # (1.0-4.8) k/uL Monocytes # (0-1.0) k/uL Eosinophils # (0-0.7) k/uL Basophils # (0-0.2) k/uL Sodium (137-145) mmol/L Potassium (3.5-5.1) mmol/L Chloride (98-107) mmol/L Carbon Dioxide (22-30) mmol/L Anion Gap mmol/L BUN (7-17) mg/dL Creatinine (0.52-1.04) mg/dL Est GFR (CKD-EPI)AfAm (>60 ml/min/1.73 sqM) Est GFR (CKD-EPI)NonAf (>60 ml/min/1.73 sqM) Glucose (74-99) mg/dL Plasma Lactic Acid Alexei (0.7-2.0) mmol/L Calcium (8.4-10.2) mg/dL Total Bilirubin (0.2-1.3) mg/dL AST (14-36) U/L ALT (4-34) U/L Alkaline Phosphatase (38-126) U/L Troponin I <0.012 (0.000-0.034) ng/mL Total Protein (6.3-8.2) g/dL Albumin (3.5-5.0) g/dL Amylase (30-110) U/L Lipase (23-300) U/L Disposition Clinical Impression: Small bowel obstruction Disposition: ADMITTED IP TO THIS HOSP Condition: Fair Is patient prescribed a controlled substance at d/c from ED?: No Referrals: Marlon Ellis MD [Primary Care Provider] - 1-2 days Time of Disposition: 19:28
[2020-09-04 17:14] LABS: Basophils % (A) 0 %; Eosinophils % (A) 0 %; HCT 39.6 % (34.0-46.0); HGB 13.9 gm/dL (11.4-16.0); Lymphocytes # (A) 0.8 k/uL (1.0-4.8); Lymphocytes % (A) 6 %; MCH 32.6 pg (25.0-35.0); MCV 93.2 fL (80.0-100.0); Monocytes # (A) 0.4 k/uL (0-1.0); Monocytes % (A) 3 %; Neutrophils # (A) 11.7 k/uL (1.3-7.7); Neutrophils % (A) 89 %; Platelet Count 315 k/uL (150-450); RBC 4.25 m/uL (3.80-5.40); RDW 13.2 % (11.5-15.5)
[2020-09-04 17:29] LABS: Albumin 4.5 g/dL (3.5-5.0); Calcium 9.9 mg/dL (8.4-10.2); Total Bilirubin 0.9 mg/dL (0.2-1.3); Total Protein 7.2 g/dL (6.3-8.2)
[2020-09-04 17:31] LABS: Potassium 4.3 mmol/L (3.5-5.1)
--- NOTE | 2020-09-04 19:00 | CT ---
EXAMINATION TYPE: CT abdomen pelvis w con DATE OF EXAM: 09/04/2020 COMPARISON: 11/15/2019 HISTORY: RLQ tenderness, + johnson sign. CT DLP: 295.4 mGycm Automated exposure control for dose reduction was used. CONTRAST: Performed with IV Contrast, patient injected with 100 mL of Isovue 300. Lung bases are clear. There is no pleural effusion. Heart size is normal. There is no pericardial eff usion. Liver spleen pancreas stomach appear intact. The bile ducts are not dilated. There is no adrenal mass. There are small cortical cysts in the right kidney. There is no hydronephro sis. There is no evidence of a renal solid mass. There is no retroperitoneal adenopathy. Abdominal ao rta is atheromatous. The bladder distends smoothly. There is no inguinal hernia. There is apparent hy sterectomy. There is 2 cm pelvic calcification at the vaginal vault. This could be some scar tissue. There is small amount of free fluid in the pelvis on the right side. There are some distended small b owel loops with multiple air-fluid levels. Small bowel measures up to 3.2 cm. Large bowel is not dila adela. The terminal ileum does not appear dilated. Transition point is not identified. There is a degenerative first-degree L4-5 spondylolisthesis. There is moderate narrowing of the L2-3 disc space. There is no lumbar compression fracture. The bony pelvis is intact. The hip joints are in tact. IMPRESSION: Dilated small bowel suggestive of partial mechanical obstruction or small bowel ileus which is new co mpared to old exam. Appendix not seen. Mild free fluid in the pelvis appears new compared to old exam .
[2020-09-04] MEDS ORDERED: NALOXONE 0.4 MG/ML 1 ML VIAL IV PRN (19:27)
[2020-09-04] MEDS ORDERED: ONDANSETRON 4 MG/2 ML VIAL IVP PRN (19:27)
[2020-09-04 20:17] LABS: Appearance,Urine Clear (Clear); Bilirubin,Urine Negative (Negative); Blood,Urine Negative (Negative); Color,Urine Yellow; Glucose,Urine (UA) Negative (Negative); Ketones,Urine Negative (Negative); Leukocyte Esterase,Urine Small (Negative); Mucus,Urine Rare /hpf; Nitrite,Urine Negative (Negative); PH, Urine 5.5 (5.0-8.0); Protein,Urine Trace (Negative); RBC,Urine 2 /hpf (0-5); Squamous Epithelial Cell,Urine <1 /hpf (0-4); Urobilinogen,Urine <2.0 mg/dL (<2.0); WBC,Urine 7 /hpf (0-5)
[2020-09-04 20:36] LABS: Specific Gravity,Urine >1.050 (1.001-1.035)
--- NOTE | 2020-09-04 20:43 | XR ---
EXAMINATION TYPE: XR chest 1V DATE OF EXAM: 09/04/2020 COMPARISON: NONE HISTORY: Check tube placement TECHNIQUE: Single view FINDINGS: Heart size is normal. Lungs are clear of infiltrate. There is no heart failure. There is no pleural effusion. Thoracic aorta is atheromatous. There is nasogastric tube with the tip over the lateral aspect of the stomach. IMPRESSION: NG tube in good position. No acute lung disease. Normal heart.
[2020-09-04] MEDS: SODIUM CHLORIDE 0.9% 1,000 ML IV SCH (23:00)
--- NOTE | 2020-09-05 00:19 | P.HPIM ---
History of Present Illness H&P Date: 09/04/20 The patient is a 80-year-old female with a PMH of atherosclerosis of intra- abdominal vasculature (on Xarelto, as per patient), hypertension, and hyperlipidemia who presented to the emergency room with complaints of abdominal pain and nausea. The patient reports that she was in her usual state of health until yesterday evening when after dinner, she felt as though something in her abdomen did not feel quite right. When she woke up this morning, she reports intermittent aching and sharp like midabdominal pain, lasting for a few minutes at a time, 8 out of 10 at maximal intensity, with no alleviating or exacerbating features. Patient reports passing gas and burping throughout the day but has not had a bowel movement today. She also reports nausea without vomiting. At time of interview, she reported that her pain had significantly improved, currently at a 1 out of 10. She notes that due to her pain, she had not been eating or drinking much throughout the day today. She denied a history of abdominal surgeries. She also denied fever, chills, or urinary complaints. She denied vaginal discharge. Denied noticing blood or black tarry stools. Further denied chest discomfort, shortness of breath, cough. She underwent an extensive evaluation in the emergency room with a CT abdomen and pelvis showing findings consistent with a partial mechanical small bowel obstruction. Laboratory evaluation revealed leukocytosis of 13, sodium 135, BUN 32, glucose 131, lactic acid 2.1, and an unremarkable UA. Review of systems: Pertinent positives and negatives as discussed in HPI, a complete review of systems was performed and all other systems are negative. Physical examination: General: non toxic, no distress, appears at stated age, frail Derm: no unusual rashes/lesions no unusual ecchymoses, warm, dry Head: atraumatic, normocephalic, symmetric Eyes: EOMI, no lid lag, anicteric sclera, pupils equal round reactive to light ENT: Nose and ears atraumatic, no thrush, no pharyngeal erythema Neck: No thyromegaly, no cervical lymphadenopathy, trachea midline, supple Mouth: no lip lesion, mucus membranes moist Cardiovascular: S1S2 reg, no murmur, positive posterior tibial pulse bilateral, no edema, capillary refill less than 2 seconds Lungs: CTA bilateral, no rhonchi, no rales , no accessory muscle use Abdominal: soft, nontender to palpation, no guarding, no appreciable organo megaly Ext: no gross muscle atrophy, muscle strength 5 out of 5 in all 4 extremities grossly, no contractures, Neuro: CN II-XI grossly intact, light touch intact all 4 extremities, finger to nose within normal limits, Psych: Alert, oriented, appropriate affect Assessment/plan Partial small bowel obstruction -Continue with NG tube with intermittent suction -Nothing by mouth for now -Pain control -Surgery consulted -Gentle IV fluids -Antiemetics Prerenal azotemia -Likely due to poor oral intake -Monitor for now and continue with gentle hydration Chronic conditions: Hypertension, hyperlipidemia, atherosclerosis -Continue with home meds -Hold antihypertensives in setting of borderline BP DVT prophylaxis -Xarelto The patient is admitted with an anticipated greater than 2 midnight stay for evaluation of partial SBO CODE STATUS: No Code Discussed with: Patient Anticipated discharge date: 2-[address]: Home Past Medical History Past Medical History: Hyperlipidemia, Hypertension, Osteoarthritis (OA) Additional Past Medical History / Comment(s): OSTEOPOROSIS. History of Any Multi-Drug Resistant Organisms: None Reported Past Surgical History: Orthopedic Surgery Additional Past Surgical History / Comment(s): D&C. LEFT WRIST FRACTURE. Past Anesthesia/Blood Transfusion Reactions: No Reported Reaction Past Psychological History: No Psychological Hx Reported, Bipolar, Depression Smoking Status: Current every day smoker Past Alcohol Use History: None Reported Past Drug Use History: None Reported - Past Family History Daughter(s) Family Medical History: Hyperlipidemia, Hypertension Medications and Allergies Home Medications Medication Instructions Recorded Confirmed Type Aspirin 81 mg PO DAILY 07/04/16 09/04/20 History Atorvastatin [Lipitor] 10 mg PO HS 07/04/16 09/04/20 History Lisinopril-Hctz 10-12.5 mg 1 tab PO BID 07/04/16 09/04/20 History [Zestoretic 10-12.5] Cholecalciferol (Vitamin D3) 50 mcg PO DAILY 07/31/17 09/04/20 History [Vitamin D3] Fluticasone/Salmeterol [Advair 1 puff INHALATION RT-BID 07/31/17 09/04/20 History 250-50 Diskus] Rivaroxaban [Xarelto] 2.5 mg PO BID #60 tab 01/04/19 09/04/20 Rx Denosumab [Prolia] 60 mg SQ Q180D 11/15/19 09/04/20 History Kelvin/D3/Mag11/Zinc/It Audit Manager/Garth/Bor 1 tab PO DAILY 09/04/20 09/04/20 History [Caltrate 600+D Plus Tablet] Pantoprazole [Protonix] 40 mg PO BID PRN 09/04/20 09/04/20 History Allergies Allergy/AdvReac Type Severity Reaction Status Date / Time No Known Allergies Allergy Verified 09/04/20 19:40 Physical Exam Vitals: Vital Signs Temp Pulse Pulse Resp BP BP Pulse Ox 09/04/20 20:45 98.6 F 87 17 113/57 91 L 09/04/20 20:18 99.3 F 95 18 104/60 94 L 09/04/20 19:33 80 18 111/56 92 L 09/04/20 16:22 97.5 F L 106 H 16 86/48 95 Intake and Output 09/04/20 09/04/20 09/04/20 06:59 14:59 22:59 Other: Weight 31.751 kg Results CBC & Chem 7: 09/04/20 16:56 09/04/20 16:56 Labs: Abnormal Lab Results - Last 24 Hours (Table) 09/04/20 09/04/20 09/04/20 Range/Units 16:56 16:56 19:30 WBC 13.0 H (3.8-10.6) k/uL Neutrophils # 11.7 H (1.3-7.7) k/uL Lymphocytes # 0.8 L (1.0-4.8) k/uL Sodium 135 L (137-145) mmol/L BUN 32 H (7-17) mg/dL Glucose 131 H (74-99) mg/dL Ur Specific [place] >1.050 H (1.001-1.035) Urine Protein Trace H (Negative) Ur Leukocyte Esterase Small H (Negative) Urine WBC 7 H (0-5) /hpf Urine Mucus Rare H (None) /hpf
--- NOTE | 2020-09-05 00:29 | P.PN ---
Progress Note - Text Progress Note Date: 09/04/20 Advanced Care Planning: Diagnoses: Partial small bowel obstruction Discussion: Person(s) present and participating in discussion: Patient Summary: Discussed with the patient's goals of care in great detail. The patient noted that at her age at 80, she does not feel that she is strong enough to go through CPR and be placed on life support. She further states that she has seen many of her friends get ill to the point of immobility in a chair with a poor quality of life, and states vehemently that she does not wish to end up like. She further states that her utmost priority is that she is able to live an active and full life and that she feels being placed on life support and undergoing resuscitation does not align with her goals. She states that "if it is my time to go, I want to go naturally". Will make the patient a no code as per her wishes. A total of 18 minutes of face to face time was spent discussing advanced care planning.
[2020-09-05] MEDS: RIVAROXABAN 2.5 MG TABLET PO SCH ×3 (07:33→20:04)
[2020-09-05] MEDS: ASPIRIN 81 MG PO SCH (07:33)
[2020-09-05] MEDS: SYMBICORT 80-4.5 MCG INHALER INHALATION SCH ×2 (07:34→18:17)
[2020-09-05] MEDS: SODIUM CHLORIDE 0.9% 1,000 ML IV SCH ×2 (08:52→20:05)
[2020-09-05] MEDS: PANTOPRAZOLE 40 MG/10 ML VIAL IV SCH (08:52)
[2020-09-05 10:18] LABS: HCT 34.4 % (37.2-46.3); HGB 11.2 g/dL (12.0-15.0); MCH 30.7 pg (27.0-32.0); MCHC 32.6 g/dL (32.0-37.0); MCV 94.2 fL (80.0-97.0); Platelet Count 229 X 10*3/uL (140-440); RBC 3.65 X 10*6/uL (4.10-5.20); RDW 13.4 % (11.5-14.5); WBC 10.98 X 10*3/uL (4.50-10.00)
--- NOTE | 2020-09-05 10:55 | P.GSCN ---
History of Present Illness Consult date: 09/05/20 Reason for Consult: Bowel obstruction History of present illness: 80-year-old female was seen a few years ago with somewhat similar symptoms. Patient states day prior to admission patient had crampy abdominal pain associated with bloating. No vomiting. Patient has not had previous surgeries. Patient had been having fairly normal bowel habits prior to admission. CAT scan was obtained when she presents to the hospital showing possible small bowel obstruction. It should be noted there is liquid and air resin in both small bowel and large bowel. There is some suggestion of collapsed distal small bowel loops. Last night patient had a large amount of semisolid stools. Patient says she feels much better today. This reminds her of her last hospitalization where the patient had symptom resolution shortly after admission. No previous abdominal surgeries. Review of Systems The patient denies any acute changes in vision or hearing, no dysphagia or odynophagia, no chest pain or shortness of breath, no dysuria or hematuria, no headache, no runny nose, no rectal bleeding or melena, no unexplained weight loss Past Medical History Past Medical History: Hyperlipidemia, Hypertension, Osteoarthritis (OA) Additional Past Medical History / Comment(s): OSTEOPOROSIS. History of Any Multi-Drug Resistant Organisms: None Reported Past Surgical History: Orthopedic Surgery Additional Past Surgical History / Comment(s): D&C. LEFT WRIST FRACTURE. Past Anesthesia/Blood Transfusion Reactions: No Reported Reaction Past Psychological History: No Psychological Hx Reported, Bipolar, Depression Smoking Status: Current every day smoker Past Alcohol Use History: None Reported Past Drug Use History: None Reported - Past Family History Daughter(s) Family Medical History: Hyperlipidemia, Hypertension Medications and Allergies Home Medications Medication Instructions Recorded Confirmed Type Aspirin 81 mg PO DAILY 07/04/16 09/04/20 History Atorvastatin [Lipitor] 10 mg PO HS 07/04/16 09/04/20 History Lisinopril-Hctz 10-12.5 mg 1 tab PO BID 07/04/16 09/04/20 History [Zestoretic 10-12.5] Cholecalciferol (Vitamin D3) 50 mcg PO DAILY 07/31/17 09/04/20 History [Vitamin D3] Fluticasone/Salmeterol [Advair 1 puff INHALATION RT-BID 07/31/17 09/04/20 History 250-50 Diskus] Rivaroxaban [Xarelto] 2.5 mg PO BID #60 tab 01/04/19 09/04/20 Rx Denosumab [Prolia] 60 mg SQ Q180D 11/15/19 09/04/20 History Kelvin/D3/Mag11/Zinc/Chief Payroll Clerk/Garth/Bor 1 tab PO DAILY 09/04/20 09/04/20 History [Caltrate 600+D Plus Tablet] Pantoprazole [Protonix] 40 mg PO BID PRN 09/04/20 09/04/20 History Allergies Allergy/AdvReac Type Severity Reaction Status Date / Time No Known Allergies Allergy Verified 09/04/20 19:40 Surgical - Exam Vital Signs Temp Pulse Resp BP Pulse Ox 97.5 F L 106 H 16 86/48 95 09/04/20 16:22 09/04/20 16:22 09/04/20 16:22 09/04/20 16:22 09/04/20 16:22 Physical exam: General: Well-developed, well-nourished HEENT: Normocephalic, sclerae nonicteric Abdomen: Minimal distention, nontender Extremities: No edema Neuro: Alert and oriented Results - Labs 09/05/20 06:28 09/04/20 16:56 Abnormal Lab Results - Last 24 Hours (Table) 09/04/20 09/04/20 09/04/20 Range/Units 16:56 16:56 19:30 WBC 13.0 H (3.8-10.6) k/uL RBC (4.10-5.20) X 10*6/uL Hgb (12.0-15.0) g/dL Hct (37.2-46.3) % Neutrophils # 11.7 H (1.3-7.7) k/uL Lymphocytes # 0.8 L (1.0-4.8) k/uL Sodium 135 L (137-145) mmol/L BUN 32 H (7-17) mg/dL Glucose 131 H (74-99) mg/dL Ur Specific [place] >1.050 H (1.001-1.035) Urine Protein Trace H (Negative) Ur Leukocyte Esterase Small H (Negative) Urine WBC 7 H (0-5) /hpf Urine Mucus Rare H (None) /hpf 09/05/20 Range/Units 06:28 WBC 10.98 H (3.8-10.6) k/uL RBC 3.65 L (4.10-5.20) X 10*6/uL Hgb 11.2 L (12.0-15.0) g/dL Hct 34.4 L (37.2-46.3) % Neutrophils # (1.3-7.7) k/uL Lymphocytes # (1.0-4.8) k/uL Sodium (137-145) mmol/L BUN (7-17) mg/dL Glucose (74-99) mg/dL Ur Specific [place] (1.001-1.035) Urine Protein (Negative) Ur Leukocyte Esterase (Negative) Urine WBC (0-5) /hpf Urine Mucus (None) /hpf Diabetes panel 09/04/20 Range/Units 16:56 Sodium 135 L (137-145) mmol/L Potassium 4.3 (3.5-5.1) mmol/L Chloride 99 (98-107) mmol/L Carbon Dioxide 22 (22-30) mmol/L BUN 32 H (7-17) mg/dL Creatinine 0.75 (0.52-1.04) mg/dL Glucose 131 H (74-99) mg/dL Calcium 9.9 (8.4-10.2) mg/dL AST 36 (14-36) U/L ALT 22 (4-34) U/L Alkaline Phosphatase 53 (38-126) U/L Total Protein 7.2 (6.3-8.2) g/dL Albumin 4.5 (3.5-5.0) g/dL Calcium panel 09/04/20 Range/Units 16:56 Calcium 9.9 (8.4-10.2) mg/dL Albumin 4.5 (3.5-5.0) g/dL Pituitary panel 09/04/20 Range/Units 16:56 Sodium 135 L (137-145) mmol/L Potassium 4.3 (3.5-5.1) mmol/L Chloride 99 (98-107) mmol/L Carbon Dioxide 22 (22-30) mmol/L BUN 32 H (7-17) mg/dL Creatinine 0.75 (0.52-1.04) mg/dL Glucose 131 H (74-99) mg/dL Calcium 9.9 (8.4-10.2) mg/dL Adrenal panel 09/04/20 Range/Units 16:56 Sodium 135 L (137-145) mmol/L Potassium 4.3 (3.5-5.1) mmol/L Chloride 99 (98-107) mmol/L Carbon Dioxide 22 (22-30) mmol/L BUN 32 H (7-17) mg/dL Creatinine 0.75 (0.52-1.04) mg/dL Glucose 131 H (74-99) mg/dL Calcium 9.9 (8.4-10.2) mg/dL Total Bilirubin 0.9 (0.2-1.3) mg/dL AST 36 (14-36) U/L ALT 22 (4-34) U/L Alkaline Phosphatase 53 (38-126) U/L Total Protein 7.2 (6.3-8.2) g/dL Albumin 4.5 (3.5-5.0) g/dL Assessment and Plan (1) Small bowel obstruction Narrative/Plan: 80-year-old female with presentation of abdominal pain. CAT scan showing possible small bowel obstruction. Suspect likely gastroenteritis as the etiology rather than bowel obstruction. Keep nasogastric tube to suction today. Repeat abdominal x-rays tomorrow. Hopefully remove nasogastric tube tomorrow and begin diet if doing well and x-rays improved. Current Visit: Yes Status: Acute Code(s): K56.609 - UNSP INTESTNL OBST, UNSP TO PARTIAL VERSUS COMPLETE OBST SNOMED Code(s): 831672045
[2020-09-05 11:39] LABS: African American GFR (CKD) 95.5 (60.0-200.0); Anion Gap 10.4 mmol/L (4.00-12.00); BUN/Creat Ratio 38.57 Ratio (12.00-20.00); Calcium 8.3 mg/dL (8.7-10.3); Carbon Dioxide 22.6 mmol/L (21.6-31.8); Non-African American GFR(CKD) 82.4 (60.0-200.0); Potassium 3.4 mmol/L (3.5-5.5)
[2020-09-05] MEDS ORDERED: HYDROcodone/APAP 5-325MG 1 EACH TAB PO PRN (14:27)
[2020-09-05] MEDS ORDERED: ACETAMINOPHEN TAB 325 MG TAB PO PRN (14:27)
--- NOTE | 2020-09-05 14:27 | P.PN ---
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 In the ER she underwent an extensive evaluation. CT abdomen and pelvis showed possible. She had an NGT placed and was admitted for further monitoring. She was evaluated by surgery who felt likely gastroenteritis. Patient seen and examined at bedside. She states that pain is much better, 3 BM that were diarrhea, and no nuasea. NGT with blue output. General: non toxic, no distress, appears older than stated age, temporal wasting, cachexia Derm: warm, dry Head: atraumatic, normocephalic, symmetric Eyes: EOMI, no lid lag, anicteric sclera Mouth: no lip lesion, mucus membranes moist, + NGT inplace Cardiovascular: S1S2 reg, no murmur, positive posterior tibial pulse bilateral, Lungs: Decreased bs bilateral, no rhonchi, no rales , no accessory muscle use Abdominal: soft, nontender to palpation, no guarding, no appreciable organomegaly Ext: no gross muscle atrophy, no edema, no contractures Neuro: CN II-XI grossly intact, no focal neuro deficits Psych: Alert, oriented, appropriate affect Suspect ileus possibly secondary to gastroenteritis -Continue with NG tube -Surgery recommendations -Nothing by mouth -IV fluids Prerenal azotemia -Likely secondary to poor solute intake -IV fluids -Repeat in a.m. Chronic conditions: Hypertension Dyslipidemia Mesenteric vascular disease DVT prophylaxis: Xarelto Discussed with: patient, Dr. Villela Anticipated discharge: in 1-[address]: home A total of 25 minutes was spent on the care of this complex patient more than 50% of the time was spent in counseling and care coordination. Active Medications Aspirin (Aspirin 81 Mg) 81 mg PO DAILY [facility] Last Admin: 09/05/20 07:33 Dose: Not Given Documented by: Atorvastatin Calcium (Atorvastatin 10 Mg Tab) 10 mg PO HS [facility] Budesonide/Formoterol Fumarate (Symbicort 80-4.5 Mcg Inhaler) 2 puff INHALATION RT-BID [facility] Last Admin: 09/05/20 07:34 Dose: 2 puff Documented by: Sodium Chloride (Saline 0.9%) 1,000 mls @ 75 mls/hr IV .[id number] [facility] Last Admin: 09/05/20 08:52 Dose: 75 mls/hr Documented by: Naloxone HCl (Naloxone 0.4 Mg/Ml 1 Ml Vial) 0.2 mg IV Q2M PRN PRN Reason: Opioid Reversal Ondansetron HCl (Ondansetron 4 Mg/2 Ml Vial) 4 mg IVP Q8HR PRN PRN Reason: Nausea And Vomiting Pantoprazole Sodium (Pantoprazole 40 Mg/10 Ml Vial) 40 mg IV DAILY [facility] Last Admin: 09/05/20 08:52 Dose: 40 mg Documented by: Rivaroxaban (Rivaroxaban 2.5 Mg Tablet) 2.5 mg PO BID [facility]; Protocol Last Admin: 09/05/20 10:39 Dose: 2.5 mg Documented by: Objective - Vital Signs Vital signs: Vital Signs Temp 97.6 F 09/05/20 07:38 Pulse 86 09/05/20 07:38 Resp 17 09/05/20 07:38 BP 96/57 09/05/20 07:38 Pulse Ox 91 L 09/05/20 08:05 Intake & Output 09/04/20 09/05/20 09/05/20 18:59 06:59 18:59 Weight 31.751 kg 31.751 kg Other: # Voids 3 - Labs CBC & Chem 7: 09/05/20 06:28 09/05/20 06:28 Labs: Abnormal Lab Results - Last 24 Hours (Table) 09/04/20 09/04/20 09/04/20 Range/Units 16:56 16:56 19:30 WBC 13.0 H (3.8-10.6) k/uL RBC (4.10-5.20) X 10*6/uL Hgb (12.0-15.0) g/dL Hct (37.2-46.3) % Neutrophils # 11.7 H (1.3-7.7) k/uL Lymphocytes # 0.8 L (1.0-4.8) k/uL Sodium 135 L (137-145) mmol/L Potassium (3.5-5.5) mmol/L BUN 32 H (7-17) mg/dL BUN/Creatinine Ratio (12.00-20.00) Ratio Glucose 131 H (74-99) mg/dL Calcium (8.7-10.3) mg/dL Ur Specific [place] >1.050 H (1.001-1.035) Urine Protein Trace H (Negative) Ur Leukocyte Esterase Small H (Negative) Urine WBC 7 H (0-5) /hpf Urine Mucus Rare H (None) /hpf 09/05/20 09/05/20 Range/Units 06:28 06:28 WBC 10.98 H (3.8-10.6) k/uL RBC 3.65 L (4.10-5.20) X 10*6/uL Hgb 11.2 L (12.0-15.0) g/dL Hct 34.4 L (37.2-46.3) % Neutrophils # (1.3-7.7) k/uL Lymphocytes # (1.0-4.8) k/uL Sodium (137-145) mmol/L Potassium 3.4 L (3.5-5.5) mmol/L BUN (7-17) mg/dL BUN/Creatinine Ratio 38.57 H (12.00-20.00) Ratio Glucose (74-99) mg/dL Calcium 8.3 L (8.7-10.3) mg/dL Ur Specific [place] (1.001-1.035) Urine Protein (Negative) Ur Leukocyte Esterase (Negative) Urine WBC (0-5) /hpf Urine Mucus (None) /hpf
[2020-09-05] MEDS: ATORVASTATIN 10 MG TAB PO SCH (20:03)
[2020-09-06] MEDS: PANTOPRAZOLE 40 MG/10 ML VIAL IV SCH (07:14)
[2020-09-06] MEDS: RIVAROXABAN 2.5 MG TABLET PO SCH ×2 (07:14→21:44)
[2020-09-06] MEDS: ASPIRIN 81 MG PO SCH (07:14)
[2020-09-06] MEDS: SYMBICORT 80-4.5 MCG INHALER INHALATION SCH ×2 (07:25→19:30)
--- NOTE | 2020-09-06 09:02 | XR ---
EXAMINATION TYPE: XR abdomen 2V DATE OF EXAM: 09/06/2020 COMPARISON: 09/04/2020 HISTORY: Pain TECHNIQUE: One view abdominal series FINDINGS: The osseous structures are intact. The bowel gas pattern is nonspecific. NG tube noted. There is deg enerative changes spine. Prominent small bowel loops are seen in the midabdomen there is a large calc ification pelvis. IMPRESSION: 1. Nonspecific abdomen. Persistent dilated bowel loops correlate for partial obstruction versus ileu s.
[2020-09-06 11:35] LABS: African American GFR (CKD) >90 (>60 ml/min/1.73 sqM); Anion Gap 14 mmol/L; Blood Urea Nitrogen 24 mg/dL (7-17); Carbon Dioxide 14 mmol/L (22-30); Chloride 114 mmol/L (98-107); Glucose 70 mg/dL (74-99); Potassium 3.2 mmol/L (3.5-5.1); Sodium 142 mmol/L (137-145)
[2020-09-06 11:36] LABS: Calcium 8.3 mg/dL (8.4-10.2); Non-African American GFR(CKD) 84 (>60 ml/min/1.73 sqM)
[2020-09-06 11:53] LABS: Basophils % (A) 0 %; Eosinophils % (A) 0 %; HCT 35.8 % (34.0-46.0); HGB 11.9 gm/dL (11.4-16.0); Lymphocytes # (A) 0.8 k/uL (1.0-4.8); Lymphocytes % (A) 7 %; MCH 31.9 pg (25.0-35.0); MCHC 33.2 g/dL (31.0-37.0); MCV 96.1 fL (80.0-100.0); Mean Platelet Volume 7.5; Monocytes # (A) 0.4 k/uL (0-1.0); Monocytes % (A) 4 %; Neutrophils % (A) 88 %; Platelet Count 264 k/uL (150-450); RBC 3.72 m/uL (3.80-5.40); RDW 13.3 % (11.5-15.5); WBC 11.4 k/uL (3.8-10.6)
--- NOTE | 2020-09-06 12:59 | P.PN ---
Subjective Progress Note Date: 09/06/20 Principal diagnosis: Abdominal pain Patient says she feels better. Minimal abdominal discomfort. She has had multiple loose stools. Proximally 6 episodes yesterday. No nausea or vomiting. Nasogastric tube with minimal output. Today's x-rays show mild persistent bowel dilation. Objective - Vital Signs Vital signs: Vital Signs Temp 97.9 F 09/06/20 08:00 Pulse 94 09/06/20 08:00 Resp 18 09/06/20 08:00 BP 186/61 09/06/20 08:00 Pulse Ox 96 09/06/20 08:00 Intake & Output 09/05/20 09/06/20 09/06/20 18:59 06:59 18:59 Other: # Voids 2 3 # Bowel Movements 3 - Exam Abdomen: Soft, nontender, nondistended - Labs CBC & Chem 7: 09/06/20 11:10 09/06/20 11:10 Labs: Abnormal Lab Results - Last 24 Hours (Table) 09/06/20 09/06/20 Range/Units 11:10 11:10 WBC 11.4 H (3.8-10.6) k/uL RBC 3.72 L (3.80-5.40) m/uL Neutrophils # 10.0 H (1.3-7.7) k/uL Lymphocytes # 0.8 L (1.0-4.8) k/uL Potassium 3.2 L (3.5-5.1) mmol/L Chloride 114 H (98-107) mmol/L Carbon Dioxide 14 L (22-30) mmol/L BUN 24 H (7-17) mg/dL Glucose 70 L (74-99) mg/dL Calcium 8.3 L (8.4-10.2) mg/dL Microbiology - Last 24 Hours (Table) 09/04/20 16:56 Blood Culture - Preliminary Blood No Growth after 24 hours 09/04/20 16:56 Blood Culture - Preliminary Blood No Growth after 24 hours Assessment and Plan (1) Small bowel obstruction Narrative/Plan: Patient seems to be improving clinically. We'll remove nasogastric tube. Begin clear liquids. Will follow closely. Current Visit: Yes Status: Acute Code(s): K56.609 - UNSP INTESTNL OBST, UNSP TO PARTIAL VERSUS COMPLETE OBST SNOMED Code(s): 533809062
[2020-09-06] MEDS ORDERED: Potassium Replacement Protocol 1 EACH MISC MISCELLANE PRN (14:11)
[2020-09-06] MEDS: POTASSIUM CHLORIDE ER 20 MEQ TAB.ER PO SCH ×2 (14:21→16:16)
[2020-09-06 15:21] VITALS: BMI 12.9
--- NOTE | 2020-09-06 15:31 | P.PN ---
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 In the ER she underwent an extensive evaluation. CT abdomen and pelvis showed possible. She had an NGT placed and was admitted for further monitoring. She was evaluated by surgery who felt likely gastroenteritis. Patient seen and examined at bedside. Having bowel movements loose and mutiple episode of diarrhea, no chest pain, no nausea, abdomianl pain has General: non toxic, no distress, appears older than stated age, temporal wasting, cachexia Derm: warm, dry Head: atraumatic, normocephalic, symmetric Eyes: EOMI, no lid lag, anicteric sclera Mouth: no lip lesion, mucus membranes moist, + NGT inplace Cardiovascular: S1S2 reg, no murmur, positive posterior tibial pulse bilateral, Lungs: + ronchi bilateral , no accessory muscle use Abdominal: soft, nontender to palpation, no guarding, no appreciable organomegaly Ext: no gross muscle atrophy, no edema, no contractures Neuro: CN II-XI grossly intact, no focal neuro deficits Psych: Alert, oriented, appropriate affect Suspect ileus possibly secondary to gastroenteritis -discontinue NG tube -Surgery recommendations -clear liquid diet -stop IV fluids Prerenal azotemia -Likely secondary to poor solute intake -IV fluids -Repeat in a.m. Hyperkalemia - replace and recheck in AM and check magnesium Chronic conditions: Hypertension Dyslipidemia Mesenteric vascular disease DVT prophylaxis: Xarelto Discussed with: patient, Dr. Villela Anticipated discharge: in 1-[address]: home A total of 25 minutes was spent on the care of this complex patient more than 50% of the time was spent in counseling and care coordination. Active Medications Acetaminophen (Acetaminophen Tab 325 Mg Tab) 650 mg PO Q6HR PRN PRN Reason: Fever and/ or Pain Hydrocodone Bitart/Acetaminophen (Hydrocodone/Apap 5-325mg 1 Each Tab) 1 each PO Q6HR PRN PRN Reason: Pain Aspirin (Aspirin 81 Mg) 81 mg PO DAILY [facility] Last Admin: 09/06/20 07:14 Dose: 81 mg Documented by: Atorvastatin Calcium (Atorvastatin 10 Mg Tab) 10 mg PO HS [facility] Last Admin: 09/05/20 20:03 Dose: 10 mg Documented by: Budesonide/Formoterol Fumarate (Symbicort 80-4.5 Mcg Inhaler) 2 puff INHALATION RT-BID [facility] Last Admin: 09/06/20 07:25 Dose: 2 puff Documented by: Miscellaneous Information (Potassium Replacement Protocol 1 Each Misc) 1 each MISCELLANE DAILY PRN; Protocol PRN Reason: Per Protocol Naloxone HCl (Naloxone 0.4 Mg/Ml 1 Ml Vial) 0.2 mg IV Q2M PRN PRN Reason: Opioid Reversal Ondansetron HCl (Ondansetron 4 Mg/2 Ml Vial) 4 mg IVP Q8HR PRN PRN Reason: Nausea And Vomiting Pantoprazole Sodium (Pantoprazole 40 Mg/10 Ml Vial) 40 mg IV DAILY [facility] Last Admin: 09/06/20 07:14 Dose: 40 mg Documented by: Potassium Chloride (Potassium Chloride Er 20 Meq Tab.Er) 20 meq PO Q1HR [facility]; Protocol Stop: 09/06/20 16:01 Last Admin: 09/06/20 14:21 Dose: 20 meq Documented by: Rivaroxaban (Rivaroxaban 2.5 Mg Tablet) 2.5 mg PO BID [facility]; Protocol Last Admin: 09/06/20 07:14 Dose: 2.5 mg Documented by: Objective - Vital Signs Vital signs: Vital Signs Temp 97.9 F 09/06/20 08:00 Pulse 94 09/06/20 08:00 Resp 18 09/06/20 08:00 BP 186/61 09/06/20 08:00 Pulse Ox 96 09/06/20 08:00 Intake & Output 09/05/20 09/06/20 09/06/20 18:59 06:59 18:59 Weight 30 kg Other: # Voids 2 3 # Bowel Movements 3 - Labs CBC & Chem 7: 09/06/20 11:10 09/06/20 11:10 Labs: Abnormal Lab Results - Last 24 Hours (Table) 09/06/20 09/06/20 Range/Units 11:10 11:10 WBC 11.4 H (3.8-10.6) k/uL RBC 3.72 L (3.80-5.40) m/uL Neutrophils # 10.0 H (1.3-7.7) k/uL Lymphocytes # 0.8 L (1.0-4.8) k/uL Potassium 3.2 L (3.5-5.1) mmol/L Chloride 114 H (98-107) mmol/L Carbon Dioxide 14 L (22-30) mmol/L BUN 24 H (7-17) mg/dL Glucose 70 L (74-99) mg/dL Calcium 8.3 L (8.4-10.2) mg/dL Microbiology - Last 24 Hours (Table) 09/04/20 16:56 Blood Culture - Preliminary Blood No Growth after 24 hours 09/04/20 16:56 Blood Culture - Preliminary Blood No Growth after 24 hours
--- NOTE | 2020-09-06 16:02 | XR ---
EXAMINATION TYPE: XR chest 1V portable DATE OF EXAM: 09/06/2020 COMPARISON: 09/04/2020 HISTORY: Shortness of breath TECHNIQUE: Single frontal view of the chest is obtained. FINDINGS: There is no focal air space opacity, pleural effusion, or pneumothorax seen. The cardiac silhouette size is within normal limits. The osseous structures are intact. Calcification along the proximal right humerus nonspecific but stable. Hyperinflation compatible COPD. Atherosclerotic mccormack e aorta. IMPRESSION: COPD.
[2020-09-06] MEDS: ATORVASTATIN 10 MG TAB PO SCH (21:44)
[2020-09-07] MEDS: SYMBICORT 80-4.5 MCG INHALER INHALATION SCH (07:27)
[2020-09-07 08:05] VITALS: BP 151/67; PULSE 86; RESP 17; TEMP 98.1
[2020-09-07] MEDS: ASPIRIN 81 MG PO SCH (09:57)
[2020-09-07] MEDS: RIVAROXABAN 2.5 MG TABLET PO SCH (09:57)
[2020-09-07] MEDS: PANTOPRAZOLE 40 MG/10 ML VIAL IV SCH (10:28)
--- NOTE | 2020-09-07 11:49 | P.PN ---
<Sulma Kent - Last Filed: 09/07/20 11:44> Subjective Progress Note Date: 09/07/20 CHIEF COMPLAINT: Abdominal pain HISTORY OF PRESENT ILLNESS: Patient is followed for her small bowel obstruction. Her NG tube was removed yesterday. She reports that her abdominal pain and distention has decreased since admission. She is having flatus and bowel movement. She reports her stool as diarrhea. She denies any nausea vomiting. She is currently on a clear liquid diet. Medical service has advanced her to a full liquid diet this afternoon. Afebrile. PHYSICAL EXAM: VITAL SIGNS: Reviewed. GENERAL: Well-developed in no acute distress. HEENT: No sclera icterus. Extraocular movements grossly intact. Moist buccal mucosa. Head is atraumatic, normocephalic. ABDOMEN: Soft. Mildly distended. Nontender NEUROLOGIC: Alert and oriented. Cranial nerves II through XII grossly intact. ASSESSMENT: 1. Small bowel obstruction PLAN: -Patient is being started on full liquid diet at lunch as ordered per medicine s ervice -Encouraged patient to ambulate Physician Manager Respiratory Care note has been reviewed by physician. Signing provider agrees with the documented findings, assessment, and plan of care. Objective - Vital Signs Vital signs: Vital Signs Temp 98.1 F 09/07/20 08:00 Pulse 86 09/07/20 08:00 Resp 17 09/07/20 08:00 BP 151/67 09/07/20 08:00 Pulse Ox 95 09/07/20 08:00 Intake & Output 09/06/20 09/07/20 09/07/20 18:59 06:59 18:59 Weight 30 kg Other: # Voids 3 4 # Bowel Movements 4 - Labs CBC & Chem 7: 09/06/20 11:10 09/06/20 11:10 Labs: Abnormal Lab Results - Last 24 Hours (Table) 09/06/20 Range/Units 11:10 WBC 11.4 H (3.8-10.6) k/uL RBC 3.72 L (3.80-5.40) m/uL Neutrophils # 10.0 H (1.3-7.7) k/uL Lymphocytes # 0.8 L (1.0-4.8) k/uL Microbiology - Last 24 Hours (Table) 09/04/20 16:56 Blood Culture - Preliminary Blood No Growth after 48 hours 09/04/20 16:56 Blood Culture - Preliminary Blood No Growth after 48 hours <Nicho Villela - Last Filed: 09/07/20 15:33> Subjective As above. Patient tolerating diet. Continue advancing diet as tolerated. May discharge if tolerates. Objective - Vital Signs Vital signs: Vital Signs Temp 98.1 F 09/07/20 08:00 Pulse 86 09/07/20 08:00 Resp 17 09/07/20 08:00 BP 151/67 09/07/20 08:00 Pulse Ox 95 09/07/20 08:00 Intake & Output 09/06/20 09/07/20 09/07/20 18:59 06:59 18:59 Weight 30 kg Other: # Voids 3 4 # Bowel Movements 4 - Labs CBC & Chem 7: 09/06/20 11:10 09/06/20 11:10 Labs: Microbiology - Last 24 Hours (Table) 09/04/20 16:56 Blood Culture - Preliminary Blood No Growth after 48 hours 09/04/20 16:56 Blood Culture - Preliminary Blood No Growth after 48 hours Assessment and Plan (1) Small bowel obstruction Status: Acute Code(s): K56.609 - UNSP INTESTNL OBST, UNSP TO PARTIAL VERSUS COMPLETE OBST SNOMED Code(s): 655836437
--- NOTE | 2020-09-07 13:28 | P.DS ---
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 In the ER she underwent an extensive evaluation. CT abdomen and pelvis showed possible. She had an NGT placed and was admitted for further monitoring. She was evaluated by surgery. Patient was managed conservatively. Her overall condition significantly. She was started on liquid diet was advanced as tolerated. No more nausea or vomiting. Patient is having bowel movement during this admission. She'll be discharged home in a stable condition. Patient was seen, evaluated, and examined by me on the day of discharge. General: The patient is awake and alert, in no distress Eye: there is normal conjunctiva bilaterally. Neck: The neck is supple, there is no JVD. Cardiovascular: Normal S1-S2, no S3-S4, no murmurs. Respiratory: Lungs clear to auscultation bilaterally Gastrointestinal: Abdomen is soft, nontender Musculoskeletal: There is no pedal edema. Neurological:. Speech is normal. Skin: Skin is warm and dry Patient Condition at Discharge: Fair Plan - Discharge Summary Discharge Rx Participant: No New Discharge Prescriptions: Continue Lisinopril-Hctz 10-12.5 mg [Zestoretic 10-12.5] 1 tab PO BID Atorvastatin [Lipitor] 10 mg PO HS Aspirin 81 mg PO DAILY Fluticasone/Salmeterol [Advair 250-50 Diskus] 1 puff INHALATION RT-BID Cholecalciferol (Vitamin D3) [Vitamin D3] 50 mcg PO DAILY Rivaroxaban [Xarelto] 2.5 mg PO BID #60 tab Denosumab [Prolia] 60 mg SQ Q180D Pantoprazole [Protonix] 40 mg PO BID PRN PRN Reason: GERD Kelvin/D3/Mag11/Zinc/Commercial Coordinator/Garth/Bor [Caltrate 600+D Plus Tablet] 1 tab PO DAILY Discharge Medication List Aspirin 81 mg PO DAILY 07/04/16 [History] Atorvastatin [Lipitor] 10 mg PO HS 07/04/16 [History] Lisinopril-Hctz 10-12.5 mg [Zestoretic 10-12.5] 1 tab PO BID 07/04/16 [History] Cholecalciferol (Vitamin D3) [Vitamin D3] 50 mcg PO DAILY 07/31/17 [History] Fluticasone/Salmeterol [Advair 250-50 Diskus] 1 puff INHALATION RT-BID 07/31/17 [History] Rivaroxaban [Xarelto] 2.5 mg PO BID #60 tab 01/04/19 [Rx] Denosumab [Prolia] 60 mg SQ Q180D 11/15/19 [History] Kelvin/D3/Mag11/Zinc/Commercial Coordinator/Garth/Bor [Caltrate 600+D Plus Tablet] 1 tab PO DAILY 09/04/20 [History] Pantoprazole [Protonix] 40 mg PO BID PRN 09/04/20 [History] Follow up Appointment(s)/Referral(s): Marlon Ellis MD [Primary Care Provider] - 09/09/20 10:30 am Discharge Disposition: HOME SELF-CARE
== END 2020-09-07 13:40 | disposition home or self-care (01) | DRG 389 ==
LOC: EC 16:17 → 4SSUR 19:19
PROVIDERS: ADMIT Internal Medicine; ATTEND Internal Medicine
PROC: 0D9770Z Drainage of Stomach, Pylorus with Drainage Device, Via Natural or Artificial Opening (ICD-10-PCS; principal; 2020-09-04)
DX: K56.690 Other partial intestinal obstruction (principal); K55.1 Chronic vascular disorders of intestine; J44.9 Chronic obstructive pulmonary disease, unspecified; Z66 Do not resuscitate; E87.6 Hypokalemia; R79.89 Other specified abnormal findings of blood chemistry; I25.10 Atherosclerotic heart disease of native coronary artery without angina pectoris; I10 Essential (primary) hypertension; K52.9 Noninfective gastroenteritis and colitis, unspecified; E78.5 Hyperlipidemia, unspecified; E87.5 Hyperkalemia; F17.210 Nicotine dependence, cigarettes, uncomplicated; M19.90 Unspecified osteoarthritis, unspecified site; M81.0 Age-related osteoporosis without current pathological fracture; Z20.822 Contact with and (suspected) exposure to COVID-19; Z79.01 Long term (current) use of anticoagulants; Z79.51 Long term (current) use of inhaled steroids; Z79.82 Long term (current) use of aspirin; Z79.899 Other long term (current) drug therapy
CPT/HCPCS: 36415; 71045; 74019; 74177; 80048; 80053; 81001; 82150; 83605; 83690; 84484; 85025; 85027; 87040; 87635; 94640; 94760; 96374; 96375; 99285

== ENCOUNTER → 2021-03-01 | Outpatient (CLI) | payer MEDICARE, MEDICAID ==
[2021-03-01 10:04] VITALS: BP 156/79; PULSE 108; RESP 16; TEMP 98.1
== END ==
LOC: PROCWHC3 09:54
PROVIDERS: ATTEND Family Medicine
DX: M81.0 Age-related osteoporosis without current pathological fracture (principal); F17.200 Nicotine dependence, unspecified, uncomplicated
CPT/HCPCS: 96372; J0897

== ENCOUNTER 2021-03-09 09:33 | Day surgery (SDC) | payer MEDICARE, MEDICAID ==
[2021-02-25 12:43] VITALS: BMI 13.8
[~2021-03-09 09:33] MED LIST changes: -DENOSUMAB 60 MG/ML 1 ML SYRINGE SQ NR; +LACTATED RINGERS 1,000 ML IV SCH; +LIDOCAINE 1% (10MG/ML) FOR IV START INTRADERMA PRN
[2021-03-09 09:58] VITALS: TEMP 98.4
[2021-03-09 10:03] LABS: Glucose,Whole Blood 95 mg/dL (75-99)
[2021-03-09] MEDS ORDERED: PROPOFOL 10 MG/ML 20 ML VIAL IV ONE (10:18)
[2021-03-09] MEDS ORDERED: LIDOCAINE 1% INJ 10MG/ML (20 ML MDV) ONE (10:18)
--- NOTE | 2021-03-09 10:29 | P.PCN ---
Date of Procedure: 03/09/21 Procedure(s) Performed: BRIEF HISTORY: Patient is a 81-year-old, pleasant, white female scheduled for an upper endoscopy as a part of evaluation of progressive weight loss of almost 40 pounds in the last 5 years duration associated with intermittent epigastric pain. She is complaining of early satiety and recently was hospitalized for the above symptoms and had CT of abdomen and pelvis and that was unremarkable. 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 She was seen by Dr Goodman recommended conservative approach. Because of the persistent symptoms she was recommended to have EGD and colonoscopy which he refused to have a colonoscopy.. PROCEDURE PERFORMED: Esophagogastroduodenoscopy with biopsy. PREOPERATIVE DIAGNOSIS: Epigastric pain/early satiety and progressive weight loss of 40 pounds in the last 5 days. IV sedation per anesthesia. PROCEDURE: After informed consent was obtained, the patient was brought into the endoscopy unit. IV sedation was administered by Anesthesia under continuous monitoring. Initially the Olympus GIF-140 video endoscope was inserted into the mouth. Esophagus intubated without any difficulty. It was gradually advanced into the stomach and duodenum and carefully examined. The bulb and the second part of the duodenum appeared normal. His were done from the duodenum to celiac disease The scope at this time was withdrawn to the stomach, adequately insufflated with air, and upon careful examination, mucosa of the antrum, and mild gastritis and biopsies were done from this area. The body, cardia and the fundus appeared normal. The scope was then withdrawn into the esophagus. The GE junction was located at 39 cm from the incisors. Small sliding type hiatal hernia noted. The esophagus appeared normal. There were no erosions or ulcerations seen and the patient tolerated the procedure well. IMPRESSION: 1. Small hiatal hernia. 2. And mild antral gastritis. RECOMMENDATIONS: The findings of this examination were discussed with the patient as well as her family. She was advised to follow with the biopsy results. She will continue with small frequent meals, continue on Prilosec 20 mg daily and she'll be seen in office in 2-3 weeks..
[2021-03-09 10:33] VITALS: RESP 16
[2021-03-09 10:49] VITALS: BP 121/64; PULSE 79
== END 2021-03-09 11:11 | disposition home or self-care (01) ==
LOC: ORWHC2ENDO 09:33
PROVIDERS: ATTEND Internal Medicine Gastroenterology
DX: K29.70 Gastritis, unspecified, without bleeding (principal); K44.9 Diaphragmatic hernia without obstruction or gangrene
CPT/HCPCS: 43239; 88305; J2001; J2704

== ENCOUNTER → 2021-09-08 | Outpatient (CLI) | payer MEDICARE, MEDICAID ==
[~2021-09-08] MED LIST changes: +DENOSUMAB 60 MG/ML 1 ML SYRINGE SQ NR; -LACTATED RINGERS 1,000 ML IV SCH; -LIDOCAINE 1% (10MG/ML) FOR IV START INTRADERMA PRN
[2021-09-08 09:30] VITALS: BP 156/83; PULSE 100; RESP 20; TEMP 98.1
== END ==
LOC: PROCWHC3 09:17
PROVIDERS: ATTEND Family Medicine
DX: M81.0 Age-related osteoporosis without current pathological fracture (principal); F17.200 Nicotine dependence, unspecified, uncomplicated
CPT/HCPCS: 96372; J0897

== ENCOUNTER → 2022-10-19 | Outpatient (CLI) | payer MEDICARE, MEDICAID ==
[2022-10-19 16:01] VITALS: BP 173/65; PULSE 112; RESP 16; TEMP 98.1
== END ==
LOC: PROCWHC3 09:49
PROVIDERS: ATTEND Family Medicine
DX: M81.0 Age-related osteoporosis without current pathological fracture (principal)
CPT/HCPCS: 96372; J0897

== ENCOUNTER → 2023-04-23 | Outpatient (CLI) | payer MEDICARE, MEDICAID ==
[2023-04-23] MEDS: DENOSUMAB 60 MG/ML 1 ML SYRINGE SQ NR (14:06)
[2023-04-23 14:37] VITALS: BP 127/73; PULSE 95; RESP 16; TEMP 97.5
== END ==
LOC: PROCWHC3 13:53
PROVIDERS: ATTEND Nurse Practitioner Adult Health
DX: M81.0 Age-related osteoporosis without current pathological fracture (principal)
CPT/HCPCS: 96372; J0897

== ENCOUNTER → 2023-10-29 | Outpatient (CLI) | payer MEDICARE, MEDICAID ==
[2023-10-29 10:39] VITALS: BP 188/69; PULSE 88; RESP 16; TEMP 97.9
[2023-10-29] MEDS: DENOSUMAB 60 MG/ML 1 ML SYRINGE SQ NR (10:39)
== END ==
LOC: PROCWHC3 10:25
PROVIDERS: ATTEND Nurse Practitioner Adult Health
DX: M81.0 Age-related osteoporosis without current pathological fracture (principal)
CPT/HCPCS: 96372; J0897

== ENCOUNTER 2024-05-09 10:39 | Outpatient (CLI) | payer MEDICARE, MEDICAID ==
[2024-05-09 11:11] VITALS: BP 189/70; PULSE 97; RESP 16; TEMP 98.2
[2024-05-09] MEDS: DENOSUMAB 60 MG/ML 1 ML SYRINGE SQ NR (11:13)
== END 2024-05-09 13:52 | disposition home or self-care (01) ==
LOC: PROCWHC3 10:39
PROVIDERS: ATTEND Family Medicine
DX: M81.0 Age-related osteoporosis without current pathological fracture (principal)
CPT/HCPCS: 96372; J0897